=== PATIENT | female | born 1960 | race Hispanic/Latino ===

== ENCOUNTER 2017-10-16 12:36 | Observation (INO) | payer OTHER, SELFPAY ==
[2017-10-16] MEDS ORDERED: ASPIRIN 81 MG CHEWABLE TABLET ONE (12:55)
[2017-10-16] MEDS ORDERED: NA CHLORIDE 0.9% 500 ML ONE (13:06)
[2017-10-16 13:09] LABS: Absolute Lymphocytes (CBC) 2.3 K/uL (0.7-4.9); Absolute Monocytes 0.8 K/uL (0.1-1.3); Absolute Neutrophil 7.4 K/uL (1.8-8.0); Basophils % 0.7 % (0-1.3); Eosinophils % 1.8 % (0-4.4); Hematocrit 44.7 % (36.0-45.0); Lymphocytes % 21.3 % (15.3-44.8); MCH 30.7 pg (27.0-35.0); MCV 91.6 fL (80-100); MPV 8.8 fL (7.6-11.3); RBC Red Blood Cell Count 4.88 M/uL (3.86-4.86)
[2017-10-16 13:16] LABS: Protime INR 0.88
[2017-10-16 13:22] LABS: Albumin 3.8 g/dL (3.4-5.0); Bilirubin Direct 0.2 mg/dL (0-0.2); Bilirubin Total 0.8 mg/dL (0.2-1.0); CKMB Creatine Kinase MB 1.2 ng/mL (0.3-3.6); Potassium 4.1 mmol/L (3.5-5.1); Protein, Total 7.3 g/dL (6.4-8.2)
--- NOTE | 2017-10-16 13:26 | ER ---
Nurse's Notes [facility] Name: Evon Cain Age: 57 yrs Sex: Female : 1960 Arrival Date: 10/16/2017 Time: 12:[address] Private MD: Diagnosis: Other chest pain Presentation: 10/16 12:35 Presenting complaint: EMS states: pt c/o getting SOB when she starts with this rapid, tw2 deep belching, vs stable, normal EKG, has Trigeminal neuralgia, hx of anxiety and hyperlipidemia, only takes medications for cholesterol, Atorvastatin, has rx for Ribaxin PRN. Transition of care: patient was not received from another setting of care. Onset of symptoms was October 16, 2017. Risk Assessment: Do you want to hurt yourself or someone else? Patient reports no desire to harm self or others. Initial Sepsis Screen: Does the patient meet any 2 criteria? No. Patient's initial sepsis screen is negative. Does the patient have a suspected source of infection? No. Patient's initial sepsis screen is negative. Care prior to arrival: None. 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 tw2 Historical: - Allergies: 16:34 No Known Allergies; tw2 - Home Meds: 16:34 atorvastatin 40 mg oral tab 1 tab once daily [Active]; tw2 - PMHx: 16:34 Hyperlipidemia; Anxiety; tw2 17:00 Trigiminal neuralgia; tw2 - PSHx: 16:34 None; tw2 - Immunization history:: Adult Immunizations up to date. - Social history:: Smoking status: Patient uses tobacco products, smokes one-half pack cigarettes per day. - Family history:: not pertinent. - Ebola Screening: : Patient denies travel to an Ebola-affected area in the 21 days before illness onset. Screenin:56 Abuse screen: Denies threats or abuse. Nutritional screening: No deficits noted. tw2 Tuberculosis screening: No symptoms or risk factors identified. Fall Risk None identified. Assessment: 12:45 General: Appears in no apparent distress. obese, well groomed, Behavior is cooperative, tw2 appropriate for age. Pain: Complains of pain in epigastric area Also complains of pt will have spells of deep belching and experience SOB with this episodes. Neuro: Level of Consciousness is awake, alert, obeys commands, Oriented to person, place, time, situation. Cardiovascular: Denies chest pain, shortness of breath, Heart tones S1 S2 Patient's skin is warm and dry. Respiratory: Airway is patent Respiratory effort is even, unlabored, Respiratory pattern is regular, symmetrical, Breath sounds are clear bilaterally. GI: Patient currently denies epigastric pain, periods of deep belching with episodes of SOB when they happen. : No signs and/or symptoms were reported regarding the genitourinary system. EENT: No signs and/or symptoms were reported regarding the EENT system. Derm: No signs and/or symptoms reported regarding the dermatologic system. Skin is intact, is healthy with good turgor, Skin temperature is warm. Musculoskeletal: Range of motion: intact in all extremities. 14:00 Reassessment: Patient appears in no apparent distress at this time. Patient and/or tw2 family updated on plan of care and expected duration. Pain level reassessed. Patient is alert, oriented x 3, equal unlabored respirations, skin warm/dry/pink. 15:00 Reassessment: Patient appears in no apparent distress at this time. Patient and/or tw2 family updated on plan of care and expected duration. Pain level reassessed. Patient is alert, oriented x 3, equal unlabored respirations, skin warm/dry/pink. 16:30 Reassessment: Patient appears in no apparent distress at this time. No changes from tw2 previously documented assessment. Patient and/or family updated on plan of care and expected duration. Pain level reassessed. Patient is alert, oriented x 3, equal unlabored respirations, skin warm/dry/pink. 17:02 Reassessment: Patient appears in no apparent distress at this time. No changes from tw2 previously documented assessment. Patient and/or family updated on plan of care and expected duration. Pain level reassessed. Patient is alert, oriented x 3, equal unlabored respirations, skin warm/dry/pink. Vital Signs: 12:48 BP 142 / 94; Pulse 82; Resp 18; Temp 98.7(O); Pulse Ox 99% on R/A; Pain 0/10; tw2 13:23 BP 152 / 68; Pulse 76; Resp 20; Pulse Ox 100% on R/A; tw2 13:36 Weight 90.72 kg (R); tw2 15:00 BP 127 / 95; Pulse 57; Resp 17; Pulse Ox 100% on 2 lpm NC; tw2 16:28 BP 122 / 79; Pulse 58; Resp 18; Pulse Ox 100% on 2 lpm NC; tw2 16:55 BP 127 / 81; Pulse 61; Resp 20; Pulse Ox 100% on 2 lpm NC; tw2 ED Course: 12:35 Arm band placed on. tw2 12:35 Placed in gown. Bed in low position. Side rails up X2. cardiac monitor technician on. Pulse ox on. tw2 NIBP on. 12:40 Patient arrived in ED. la1 12:41 Frida Robison RN is Primary Nurse. tw2 12:43 Herbie Ospina MD is Attending Physician. odalis 12:48 Triage completed. tw2 13:25 Jackson Walsh DO is Hospitalizing Provider. odalis 13:47 X-ray completed. Portable x-ray completed in exam room. Patient tolerated procedure la2 well. 14:41 CT completed. Patient tolerated procedure well. Patient moved back from CT. kw1 16:29 Awaiting: attempted to call report per JAIR Jensen only 1 nurse is getting all ER new pts tw2 and needs a few minutes before she can take report. 17:02 No provider procedures requiring assistance completed. Maintain EMS IV. Dressing tw2 intact. Good blood return noted. Site clean \T\ dry. Gauge \T\ site: 20 g LEFT AC. Patient admitted, IV remains in place. Administered Medications: 13:11 Drug: NS 0.9% 1000 ml Route: IV; Rate: 125 ml/hr; Site: left antecubital; tw2 17:07 Follow up: Response: No adverse reaction; IV Status: Infusion continued upon admission tw2 13:11 Drug: Aspirin Chewable Tablet 162 mg Route: PO; tw2 17:01 Follow up: Response: No adverse reaction tw2 13:30 Drug: Lopressor (metoprolol TARTRATE) 50 mg Route: PO; tw2 16:29 Follow up: Response: No adverse reaction; Blood pressure is lowered tw2 16:03 Drug: Lovenox 1 mg/kg Route: Sub-Q; Site: right lower abdomen; la1 16:28 Follow up: Response: No adverse reaction tw2 Outcome: 13:26 Decision to Hospitalize by Provider. odalis 17:02 Admitted to Med/surg accompanied by tech, via wheelchair, room 409, with chart, Report tw2 called to JAIR Hurt 17:02 Condition: stable 17:02 Instructed on the need for admit. 17:07 Patient left the ED. tw2 Signatures: Herbie Ospina MD MD cha Attema, Lee, RN RN la1 Frida Robison RN RN tw2 Kat Maharaj la2 Roxi Benson 1 Corrections: (The following items were deleted from the chart) 16:28 16:07 BP 127 / 95; Pulse 57bpm; Resp 17bpm; Pulse Ox 100% 2 lpm Nasal Cannula; tw2 tw2 16:28 15:00 BP 122 / 79; Pulse 58bpm; Resp 18bpm; Pulse Ox 100% 2 lpm Nasal Cannula; tw2 tw2
--- NOTE | 2017-10-16 13:26 | EDPHYS ---
Physician Documentation [facility] Name: Evon Cain Age: 57 yrs Sex: Female : 1960 Arrival Date: 10/16/2017 Time: 12:[address] Private MD: ED Physician Herbie Ospina HPI: 10/16 13:21 This 57 yrs old Female presents to ER via EMS with complaints of chest pain odalis and sob. 13:21 The patient has shortness of breath at rest, with light activity. Onset: The odalis symptoms/episode began/occurred 2 day(s) ago. Duration: The symptoms are intermittent, with no pattern. The patient's shortness of breath has no apparent modifying factors. The patient or guardian reports chest pain that is located primarily in the anterior chest wall. Onset: just prior to arrival. The pain does not radiate. Associated signs and symptoms: Pertinent positives: chest pain. Severity of symptoms: At their worst the symptoms were mild in the emergency department the symptoms have improved moderately. Associated signs and symptoms: The patient has no apparent associated signs or symptoms. 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 tw2 Historical: - Allergies: 16:34 No Known Allergies; tw2 - Home Meds: 16:34 atorvastatin 40 mg oral tab 1 tab once daily [Active]; tw2 - PMHx: 16:34 Hyperlipidemia; Anxiety; tw2 17:00 Trigiminal neuralgia; tw2 - PSHx: 16:34 None; tw2 - Immunization history:: Adult Immunizations up to date. - Social history:: Smoking status: Patient uses tobacco products, smokes one-half pack cigarettes per day. - Family history:: not pertinent. - Ebola Screening: : Patient denies travel to an Ebola-affected area in the 21 days before illness onset. ROS: 13:21 Constitutional: Negative for fever, chills, and weight loss, Eyes: Negative for injury, odalis pain, redness, and discharge, ENT: Negative for injury, pain, and discharge, Neck: Negative for injury, pain, and swelling, Cardiovascular: Negative for chest pain, palpitations, and edema, Respiratory: Negative for shortness of breath, cough, wheezing, and pleuritic chest pain, Abdomen/GI: Negative for abdominal pain, nausea, vomiting, diarrhea, and constipation, Back: Negative for injury and pain, : Negative for injury, bleeding, discharge, and swelling, MS/Extremity: Negative for injury and deformity, Skin: Negative for injury, rash, and discoloration, Neuro: Negative for headache, weakness, numbness, tingling, and seizure, Psych: Negative for depression, anxiety, suicide ideation, homicidal ideation, and hallucinations, Allergy/Immunology: Negative for hives, rash, and allergies, Endocrine: Negative for neck swelling, polydipsia, polyuria, polyphagia, and marked weight changes, Hematologic/Lymphatic: Negative for swollen nodes, abnormal bleeding, and unusual bruising. Exam: 13:21 Constitutional: This is a well developed, well nourished patient who is awake, alert, odalis and in no acute distress. Head/Face: Normocephalic, atraumatic. Eyes: Pupils equal round and reactive to light, extra-ocular motions intact. Lids and lashes normal. Conjunctiva and sclera are non-icteric and not injected. Cornea within normal limits. Periorbital areas with no swelling, redness, or edema. ENT: Nares patent. No nasal discharge, no septal abnormalities noted. Tympanic membranes are normal and external auditory canals are clear. Oropharynx with no redness, swelling, or masses, exudates, or evidence of obstruction, uvula midline. Mucous membranes moist. Neck: Trachea midline, no thyromegaly or masses palpated, and no cervical lymphadenopathy. Supple, full range of motion without nuchal rigidity, or vertebral point tenderness. No Meningismus. Chest/axilla: Normal chest wall appearance and motion. Nontender with no deformity. No lesions are appreciated. Cardiovascular: Regular rate and rhythm with a normal S1 and S2. No gallops, murmurs, or rubs. Normal PMI, no JVD. No pulse deficits. Respiratory: Lungs have equal breath sounds bilaterally, clear to auscultation and percussion. No rales, rhonchi or wheezes noted. No increased work of breathing, no retractions or nasal flaring. Abdomen/GI: Soft, non-tender, with normal bowel sounds. No distension or tympany. No guarding or rebound. No evidence of tenderness throughout. Back: No spinal tenderness. No costovertebral tenderness. Full range of motion. Skin: Warm, dry with normal turgor. Normal color with no rashes, no lesions, and no evidence of cellulitis. MS/ Extremity: Pulses equal, no cyanosis. Neurovascular intact. Full, normal range of motion. Neuro: Awake and alert, GCS 15, oriented to person, place, time, and situation. Cranial nerves II-XII grossly intact. Motor strength 5/5 in all extremities. Sensory grossly intact. Cerebellar exam normal. Normal gait. Psych: Awake, alert, with orientation to person, place and time. Behavior, mood, and affect are within normal limits. 13:21 Musculoskeletal/extremity: DVT Exam: No signs of deep vein thrombosis. no pain, no swelling, no tenderness, negative Homans' sign noted on exam, no appreciated bluish discoloration, no erythema, no increased warmth. Vital Signs: 12:48 BP 142 / 94; Pulse 82; Resp 18; Temp 98.7(O); Pulse Ox 99% on R/A; Pain 0/10; tw2 13:23 BP 152 / 68; Pulse 76; Resp 20; Pulse Ox 100% on R/A; tw2 13:36 Weight 90.72 kg (R); tw2 15:00 BP 127 / 95; Pulse 57; Resp 17; Pulse Ox 100% on 2 lpm NC; tw2 16:28 BP 122 / 79; Pulse 58; Resp 18; Pulse Ox 100% on 2 lpm NC; tw2 16:55 BP 127 / 81; Pulse 61; Resp 20; Pulse Ox 100% on 2 lpm NC; tw2 MDM: 13:04 Patient medically screened. [facility] 13:21 Data reviewed: vital signs, nurses notes, lab test result(s), EKG, radiologic studies, odalis plain films. 10/16 12:44 Order name: Basic Metabolic Panel; Complete Time: 13:24 [facility] 10/16 12:44 Order name: CBC with Diff; Complete Time: 13:20 [facility] 10/16 12:44 Order name: Ckmb; Complete Time: 13:24 [facility] 10/16 12:44 Order name: CPK; Complete Time: 13:24 [facility] 10/16 12:44 Order name: LFT's; Complete Time: 13:24 [facility] 10/16 12:44 Order name: Magnesium; Complete Time: 13:24 [facility] 10/16 12:44 Order name: NT PRO-BNP; Complete Time: 13:24 [facility] 10/16 12:44 Order name: PT-INR; Complete Time: 13:20 [facility] 10/16 12:44 Order name: Ptt, Activated; Complete Time: 13:20 [facility] 10/16 12:44 Order name: Troponin (emerg Dept Use Only); Complete Time: 13:24 [facility] 10/16 12:44 Order name: XRAY Chest (1 view) [facility] 10/16 12:44 Order name: Lipase; Complete Time: 13:24 [facility] 10/16 13:21 Order name: D-Dimer; Complete Time: 15:14 [facility] 10/16 16:33 Order name: Urine Dipstick--Ancillary (enter results) 10/16 12:44 Order name: EKG; Complete Time: 12:45 [facility] 10/16 12:44 Order name: Cardiac monitoring; Complete Time: 13:11 [facility] 10/16 12:44 Order name: EKG - Nurse/Tech; Complete Time: 13:11 [facility] 10/16 13:20 Order name: CT Head Brain wo Cont [facility] 10/16 13:29 Order name: CONS Physician Consult [facility] 10/16 13:29 Order name: Echo with Doppler [facility] 10/16 13:50 Order name: CT; Complete Time: 15:14 [facility] 10/16 13:53 Order name: US Extremity Venous W Compression Chan [facility] 10/16 13:53 Order name: CT Chest For PE Angio [facility] 10/16 14:01 Order name: RAD; Complete Time: 15:14 [facility] 10/16 14:47 Order name: CT; Complete Time: 15:14 [facility] 10/16 15:45 Order name: US; Complete Time: 15:55 [facility] 10/16 12:44 Order name: IV Saline Lock; Complete Time: 13:11 [facility] 10/16 12:44 Order name: Labs collected and sent; Complete Time: 13:11 [facility] 10/16 12:44 Order name: O2 Per Protocol; Complete Time: 13:11 [facility] 10/16 12:44 Order name: O2 Sat Monitoring; Complete Time: 13:11 [facility] 10/16 12:44 Order name: Urine Dipstick-Ancillary (obtain specimen); Complete Time: 16:52 [facility] Administered Medications: 13:11 Drug: NS 0.9% 1000 ml Route: IV; Rate: 125 ml/hr; Site: left antecubital; tw2 17:07 Follow up: Response: No adverse reaction; IV Status: Infusion continued upon admission tw2 13:11 Drug: Aspirin Chewable Tablet 162 mg Route: PO; tw2 17:01 Follow up: Response: No adverse reaction tw2 13:30 Drug: Lopressor (metoprolol TARTRATE) 50 mg Route: PO; tw2 16:29 Follow up: Response: No adverse reaction; Blood pressure is lowered tw2 16:03 Drug: Lovenox 1 mg/kg Route: Sub-Q; Site: right lower abdomen; la1 16:28 Follow up: Response: No adverse reaction tw2 Disposition: 10/16/17 13:26 Hospitalization ordered by Jackson Walsh for Observation. Preliminary diagnosis is Other chest pain. - Bed requested for Telemetry/MedSurg (observation). - Status is Observation. tw2 - Condition is Stable. - Problem is new. - Symptoms have improved. UTI on Admission? No Signatures: Dispatcher [employer] EDMS Mylene Phelps Corey, MD MD cha Attema, Lee RN RN la1 Frida Robison RN RN tw2 Corrections: (The following items were deleted from the chart) 15:34 13:26 Hospitalization Ordered by Jackson Walsh DO for Observation. Preliminary bd diagnosis is Other chest pain. Bed requested for Telemetry/MedSurg (observation). Status is Observation. Condition is Stable. Problem is new. Symptoms have improved. UTI on Admission? No. odalis 17:07 15:34 10/16/2017 13:26 Hospitalization Ordered by Jackson Walsh DO for Observation. tw2 Preliminary diagnosis is Other chest pain. Bed requested for Telemetry/MedSurg (observation). Status is Observation. Condition is Stable. Problem is new. Symptoms have improved. UTI on Admission? No. bd
[2017-10-16] MEDS ORDERED: METOPROLOL TAR 50 MG TAB ONE (13:30)
[2017-10-16] MEDS ORDERED: ACETAMINOPHEN 500 MG TAB PO PRN (13:42)
[2017-10-16] MEDS ORDERED: ONDANSETRON 4 MG/2 ML VIAL IV PRN (13:42)
--- NOTE | 2017-10-16 13:50 | RAD REPORT ---
EXAM DESCRIPTION: CT - Head Brain Wo Cont - 10/16/2017 1:44 pm CLINICAL HISTORY: NUMBNESS TIA/CVA COMPARISON: No comparisons TECHNIQUE: All CT scans are performed using dose optimization technique as appropriate and may inclu de automated exposure control or mA/KV adjustment according to patient size. FINDINGS: No intracranial hemorrhage, hydrocephalus or extra-axial fluid collection.No areas of brai n edema or evidence of midline shift. The paranasal sinuses and mastoids are clear. The calvarium is intact. IMPRESSION: No acute intracranial abnormality.
--- NOTE | 2017-10-16 13:51 | P.HP ---
Certification for Inpatient Patient admitted to: Observation With expected LOS: <2 Midnights Patient will require the following post-hospital care: None Practitioner: I am a practitioner with admitting privileges, knowledge of patient current condition, hospital course, and medical plan of care. Services: Services provided to patient in accordance with Admission requirements found in Title 42 Section 412.3 of the Code of Federal Regulations Patient History Date of Service: 10/16/17 Primary Care Provider: Dr. Mclaughlin([place]) Reason for admission: Chest pain, shortness of breath History of Present Illness: 57-year-old female present emergency room with chest pain and shortness of breath. Patient reports chest pain and shortness of breath since yesterday. Chest pain mainly to the left side under the breast. She rates it as a sharp pain. It does not radiate. Associated with some palpitations and shortness of breath. She felt it with is a anxiety related issue. It did not stop. Patient has a history of hyperlipidemia, trigeminal neuralgia, and anxiety. She is a former tobacco user. The patient came to the ER for further evaluation. In the ER patient was evaluated. Initial cardiac enzymes unremarkable. CBC and BMP also unremarkable. CT of the head negative. Chest x-ray unremarkable. D-dimer was elevated. No significant EKG changes noted. Blood pressures were elevated. Patient admitted for further evaluation. When I saw the patient the ER, she appeared comfortable. No chest pain or SOB noted. Patient reports that her trigeminal neuralgia has been causing some nerve pain to the face and numbness. She is taking a muscle relaxer from time to time. She has not formally seen a neurologist. Patient drinks socially. She also is a former smoker. Allergies No Known Allergies Allergy (Unverified 01/03/12 09:34) Home medications list reviewed: Yes - Past Medical/Surgical History Diabetic: No -: Hyperlipidemia -: Anxiety -: Trigeminal neuralgia -: Former tobacco use -: Appendectomy -: Nasal polyps removed -: Breast nodule removed -: Tubal ligation Psychosocial/ Personal History: Patient is single. She has 3 children. 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 - Family History Father -: Cancer (Lung cancer) - Social History Smoking Status: Former smoker Alcohol use: Yes CD- Drugs: No Caffeine use: Yes Place of Residence: Home Review of Systems General: As per HPI Eyes: Unremarkable ENT: Unremarkable Respiratory: Shortness of Breath, As per HPI Cardiovascular: Chest Pain, Palpitations, As per HPI Gastrointestinal: Unremarkable Genitourinary: Unremarkable Musculoskeletal: Unremarkable Integumentary: Unremarkable Neurological: Numbness, As per HPI Lymphatics: Unremarkable Physical Examination - Physical Exam General: Alert, In no apparent distress, Oriented x3, Cooperative HEENT: Atraumatic, Normocephalic, PERRLA, Mucous membr. moist/pink Neck: Supple, No Thyromegaly Respiratory: Clear to auscultation bilaterally, Normal air movement Cardiovascular: Normal pulses, Regular rate/rhythm Gastrointestinal: Normal bowel sounds, Soft and benign, Non-distended, No ascites, No tenderness, No masses, No rebound, No guarding Musculoskeletal: No erythema, No tenderness, No warmth Integumentary: No tenderness/swelling, No erythema, No warmth, No cyanosis Neurological: Normal speech, Normal strength at 5/5 x4 extr, Normal tone, Normal affect Lymphatics: No axilla or inguinal lymphadenopathy - Studies Laboratory Data (last 24 hrs) 10/16/17 12:55: PT 10.4, INR 0.88, APTT 26.9 10/16/17 12:55: WBC 10.8, Hgb 15.0, Hct 44.7, Plt Count 314 10/16/17 12:55: Sodium 141, Potassium 4.1, BUN 15, Creatinine 0.90, Glucose 94, Magnesium 2.0, Total Bilirubin 0.8, AST 20, ALT 30, Alkaline Phosphatase 71, Lipase 378 Assessment and Plan - Problems (Diagnosis) (1) Chest pain Current Visit: Yes Status: Acute Plan: Chest pain with shortness of breath noted. Chest pain atypical. D-dimer elevated. Will check CT chest angiogram to rule out PE. Will monitor cardiac enzymes. Will obtain ECHO. Cardiology consulted to further address. Will keep NPO after midnight in the event she needs a cardiac evaluation. Blood pressure slightly elevated. Will start medication. Qualifiers: Chest pain type: unspecified Qualified Code(s): R07.9 - Chest pain, unspecified (2) Shortness of breath Current Visit: Yes Status: Acute Plan: Shortness of breath noted. D-dimer elevated. Will check CT angiogram. (3) Hyperlipidemia Current Visit: Yes Status: Chronic Plan: Will start Lipitor. Will check lipids. Qualifiers: Hyperlipidemia type: unspecified Qualified Code(s): E78.5 - Hyperlipidemia , unspecified (4) HTN (hypertension) Current Visit: Yes Status: Suspected Plan: Blood pressure elevated upon arrival. Will start low-dose metoprolol. Qualifiers: Hypertension type: essential hypertension Qualified Code(s): I10 - Essential (primary) hypertension (5) Anxiety Current Visit: Yes Status: Chronic Plan: Will provide medication prn (6) Trigeminal neuralgia Current Visit: Yes Status: Chronic Plan: Will start Neurontin. Patient may see Neurology as an outpatient. CT head unremarkable. (7) Palpitations Current Visit: Yes Status: Acute Plan: Will monitor telemetry. Cardiology consulted. Will check tsh. Will check urine drug screen. (8) Elevated d-dimer Current Visit: Yes Status: Acute Plan: D dimer elevated. Will check CT angiogram to rule out pulmonary embolism. Discharge Plan: Home Plan to discharge in: 24 Hours - Advance Directives Does patient have a Living Will: No Does patient have a Durable POA for Healthcare: No - Code Status/Comfort Care Code Status Assessed: Yes Time Spent Managing Pts Care (In Minutes): 55
[2017-10-16] MEDS ORDERED: NITROGLYCERIN 0.4 MG/TAB SL PRN (13:57)
[2017-10-16] MEDS: ENOXAPARIN 40 MG/0.4 ML SQ SCH (14:00)
--- NOTE | 2017-10-16 14:01 | RAD REPORT ---
EXAM DESCRIPTION: RAD - Chest Single View - 10/16/2017 1:48 pm CLINICAL HISTORY: CHEST PAIN Chest pain. COMPARISON: CHEST PA AND LAT 2 VIEW dated 07/19/2007 FINDINGS: Portable technique limits examination quality. The lungs are grossly clear. The heart is normal in size. No displaced fractures. IMPRESSION: No acute intrathoracic process suspected.
--- NOTE | 2017-10-16 14:47 | RAD REPORT ---
EXAM DESCRIPTION: CT - Chest For Pe Angio - 10/16/2017 2:40 pm CLINICAL HISTORY: Chest pain. Chest pain;Dyspnea COMPARISON: Chest Single View dated 10/16/2017; CHEST PA AND LAT 2 VIEW dated 07/19/2007 TECHNIQUE: CT angiogram of the pulmonary arteries was performed with MIP. All CT scans are performed using dose optimization technique as appropriate and may include automated exposure control or mA/KV adjustment according to patient size. FINDINGS: No evidence of pulmonary thromboembolism. No acute aortic finding demonstrated. The lungs are clear. No significant pericardial or pleural fluid. No concerning bony finding. IMPRESSION: No evidence of pulmonary thromboembolism. No acute lung findings.
--- NOTE | 2017-10-16 15:44 | RAD REPORT ---
EXAM DESCRIPTION: US - EXTREM VENOUS W COMPRESS CARLOS - 10/16/2017 3:38 pm CLINICAL HISTORY: PAIN Bilateral leg edema and swelling. COMPARISON: No comparisons TECHNIQUE: Real-time sonographic interrogation of the left and right lower extremity deep venous sys tems was performed. FINDINGS: Normal compressibility, flow augmentation, phasic flow and spontaneous flow is identified in both the left and right lower extremity deep venous systems. IMPRESSION: No sonographic evidence of left or right lower extremity deep venous thrombosis.
[2017-10-16] MEDS ORDERED: ENOXAPARIN 100 MG/ML SYR SQ ONE (16:03)
[2017-10-16] MEDS ORDERED: GABAPENTIN 100 MG CAP PO PRN (17:14)
[2017-10-16] MEDS: PANTOPRAZOLE 40MG TABLET PO SCH (18:06)
[2017-10-16] MEDS: NA CHLORIDE 0.9% 1,000 ML IV SCH (18:06)
[2017-10-16] MEDS: METOPROLOL TAR 25 MG TAB PO SCH (18:08)
[2017-10-16 18:24] VITALS: BMI 33.6
[2017-10-16 18:51] LABS: Urine Appearance CLEAR; Urine Bilirubin NEGATIVE (NEG); Urine Blood NEGATIVE (NEG); Urine Color YELLOW; Urine Glucose NEGATIVE (NEG); Urine Protein NEGATIVE (NEG); Urine Specific Gravity >=1.030 (1.005-1.030); Urine pH 6.5 (5.0-7.0)
[2017-10-16 19:00] LABS: Urine Microscopic Reflex NO UMIC
[2017-10-16 19:16] LABS: Barbiturates NEGATIVE (NEGATIVE); Benzodiazepines NEGATIVE (NEGATIVE); Cocaine NEGATIVE (NEGATIVE); METHAMPHETAM NEGATIVE (NEGATIVE); Methadone NEGATIVE (NEGATIVE); Opiates NEGATIVE (NEGATIVE); Phencyclidine NEGATIVE (NEGATIVE); THC Cannibis POSITIVE (NEGATIVE)
[2017-10-16] MEDS: LORazepam 2 MG/ML VIAL IV PRN (20:37)
[2017-10-16] MEDS ORDERED: ATORVASTATIN 40 MG TAB PO SCH (21:00)
[2017-10-16 21:02] LABS: CKMB Creatine Kinase MB < 1.0 ng/mL (0.3-3.6); Creatine Phosphokinase 97 U/L (26-192)
[2017-10-17] MEDS: NA CHLORIDE 0.9% 1,000 ML IV SCH ×2 (03:53→16:40)
[2017-10-17 04:20] LABS: Absolute Lymphocytes (CBC) 2.5 K/uL (0.7-4.9); Absolute Monocytes 0.7 K/uL (0.1-1.3); Basophils % 0.7 % (0-1.3); Hematocrit 41.3 % (36.0-45.0); Lymphocytes % 33.7 % (15.3-44.8); MCV 92.8 fL (80-100); MPV 8.9 fL (7.6-11.3); Monocytes % 9.7 % (3.3-12.3); RBC Red Blood Cell Count 4.45 M/uL (3.86-4.86)
[2017-10-17 04:48] LABS: BUN Blood Urea Nitrogen 11 mg/dL (7-18); Bicarbonate 29 mmol/L (21-32); CKMB Creatine Kinase MB < 1.0 ng/mL (0.3-3.6); Creatine Phosphokinase 76 U/L (26-192); Glucose Level 93 mg/dL (74-106); HDL Cholesterol 57 mg/dL (40-60); LDL Cholesterol, Calculated 94 (<130); Magnesium 2.2 mg/dL (1.8-2.4); Potassium 4.4 mmol/L (3.5-5.1); Sodium Level 142 mmol/L (136-145)
[2017-10-17] MEDS: METOPROLOL TAR 25 MG TAB PO SCH (05:55)
[2017-10-17] MEDS: TRAMADOL HCL 50 MG TAB PO PRN ×2 (06:20→12:47)
[2017-10-17] MEDS ORDERED: FENTANYL CITR 100 MCG/2 ML IV ONE (07:56)
[2017-10-17] MEDS: LORazepam 2 MG/ML VIAL IV PRN (08:23)
[2017-10-17] MEDS: ENOXAPARIN 40 MG/0.4 ML SQ SCH (08:23)
[2017-10-17] MEDS: PANTOPRAZOLE 40MG TABLET PO SCH (08:24)
[2017-10-17] MEDS ORDERED: ASPIRIN EC 81 MG TAB PO SCH (09:00)
--- NOTE | 2017-10-17 09:46 | EKG ---
Test Date: 2017-10-16 Test Time: 13:06:53 Fiscal Agent: DINAH MEASUREMENT RESULTS: Intervals: Rate: 65 AK: 144 QRSD: 88 QT: 378 QTc: 393 [place]: P: 48 AK: 144 QRS: 25 T: 40 INTERPRETIVE STATEMENTS: Normal sinus rhythm with sinus arrhythmia Normal ECG Compared to ECG 07/19/2007 11:39:31 No significant changes Electronically Signed On 10-17-17 09:45:26 CDT by Yan Ross
[2017-10-17 10:30] VITALS: O2SAT 99
[2017-10-17 10:40] VITALS: BP 142/92; TEMP 97.6
--- NOTE | 2017-10-17 11:29 | ECHO ---
HEIGHT: 5 ft 5 in WEIGHT: 202 lb 0 oz DATE OF STUDY: 10/17/[address]: Herbie Ospina MD 2-DIMENSIONAL: YES M.MODE: YES DOPPLER: YES COLOR FLOW: YES TDS: NO PORTABLE: NO DEFINITY: NO BUBBLE STUDY: NO DIAGNOSIS: CHEST PAIN CARDIAC HISTORY: CATHERIZATION: NO SURGERY: NO PROSTHETIC VALVE: NO PACEMAKER: NO MEASUREMENTS (cm) DIASTOLIC (NORMALS) SYSTOLIC (NORMALS) IVSd 1.0 (0.6-1.2) LA Diam 2.6 (1.9-4.0) LVEF 68% LVIDd 4.5 (3.5-5.7) LVIDs 2.6 (2.0-3.5) %FS 42% LVPWd 1.1 (0.6-1.2) Ao Diam 2.4 (2.0-3.7) 2 DIMENSIONAL ASSESSMENT: RIGHT ATRIUM: NORMAL LEFT ATRIUM: NORMAL RIGHT VENTRICLE: NORMAL LEFT VENTRICLE: NORMAL TRICUSPID VALVE: NORMAL MITRAL VALVE: NORMAL PULMONIC VALVE: NORMAL AORTIC VALVE: NORMAL PERICARDIAL EFFUSION: NONE AORTIC ROOT: NORMAL LEFT VENTRICULAR WALL MOTION: NORMAL. DOPPLER/COLOR FLOW: NORMAL. COMMENTS: NORMAL 2D ECHO WITH DOPPLER. TECHNOLOGIST: NICHOLAS SOTO
[2017-10-17] MEDS ORDERED: REGADENOSON 0.4 MG/5 ML SYR IV ONE (11:47)
--- NOTE | 2017-10-17 13:03 | RAD REPORT ---
EXAM DESCRIPTION: NM - Rest Stress Cardiac Imaging - 10/17/2017 12:47 pm CLINICAL HISTORY: Chest pain COMPARISON: None. TECHNIQUE: The patient was administered 10.5 mCi of Tc 99m Sestamibi prior to resting SPECT imaging of the heart. The patient was then administered 31.9 mCi of Tc 99m Sestamibi following exercise or ph armacologic stress. Multiplanar SPECT images were reviewed. FINDINGS: The end diastolic volume is 84 ml, the end systolic volume is 37 ml, and the ejection frac tion is 56 %. Physiologic distribution of the radiopharmaceutical through the myocardium is noted. No stress induce d ischemic defect is seen to suggest stress induced ischemia. No fixed defect is seen to suggest hibe rnating myocardium or scarred myocardium. IMPRESSION: No stress-induced ischemia and no scarring confirmed. Ventricular volumes and ejection fraction are normal range.
--- NOTE | 2017-10-17 13:21 | TREADPHA ---
DX: CHEST PAIN Date of Study: 10/17/17 Ht: 5 5 Wt: 202 lb 0 oz Consulting Physician: CHPAITO MEDICATIONS: TYLENOL, ASPIRIN, LIPITOR, LOVENOX, NEURONTIN, ATIVAN, LOPRESSOR, NITROSTAT, PROTONIX, ULTRAM HISTORY: 57 YEAR OLD FEMALE HERE FOR CHEST PAIN. HISTORY OF HYPERLIPIDEMIA, ANXIETY. PHYSICIAL EXAMINATION: RESTING B.P.: 124/80 RESTING H.R.: 56 RESTING EKG: SINUS BRADYCARDIA OTHERWISE NORMAL. PROTOCOL: LEXISCAN EXERCISE TIME: 3:30 B.P. AT PEAK STRESS: 131/82 IMPRESSION: LEXISCAN STRESS TEST PERFORMED. CARDIOLITE INJECTED PER PROTOCOL. PREMATURE ATRIAL COMPLEXES NOTED DURING TEST. DENIES ANY CHEST PAIN DURING TEST PT BECAME ANXIOUS/ SHORT OF BREATH POST TEST WHILE DRINKING COFFEE AND STARTED EXTREME BELCHING. SEE NUCLEAR MEDICINE REPORT. NON DIAGNOSTIC EKG WITH LEXISCAN STRESS.
--- NOTE | 2017-10-17 14:08 | CON ---
Chief Complaint: Chest pain manifested as inability to stop belching, dyspnea. She thought she was having a heart attack, came to the hospital. EKGs and enzymes are normal. Sever al years ago a nuclear stress test was normal. The patient does not have dyslipidemia, hypertension, diabetes, and does not use tobacco. There is no history of vascular disease. She has trigeminal ne uralgia, migraine headaches and is suffering a lot from that presently. The interview was difficult because of photophobia. Her outpatient medications have been Lipitor 10 mg, alprazolam. Physical Examination: Vital Signs: She is 5 feet 5 inches, 202 pounds. HEENT: Normal. Lungs: Clear. Neck: Carotids no bruit. Heart: Normal. Abdomen: Soft. Extremities: Normal. No cyanosis, clubbing, edema. Distal pulses normal. Impression: This is a noncardiac issue. There is a concern amongst the physicians to admit her that this is an acute coronary syndrome, unusual manifestation. I think it is unlikely at this point michelle t we will need to do pharmacologic nuclear stress test. I think the patient needs better treatment f or her trigeminal neuralgia and migraines than she did get as an outpatient. Hopefully that will prevent this, but I think this was basically an anxiety spell. ARIANE/JULIO Voice ID: [id number] Report ID: [id number]
--- NOTE | 2017-10-17 16:42 | P.DS ---
Admission Date: 10/16/17 Discharge Date: 10/17/17 Primary Care Provider: Dr. Mclaughlin([place]) Disposition: ROUTINE DISCHARGE Discharge Condition: GOOD Reason for Admission: Chest pain, shortness of breath Consultations: Cardiology: Dr. Ross Procedures: Echocardiogram: Ejection fraction unremarkable. Within normal range. CT chest angiogram: Unremarkable. No acute PE. Venous Doppler lower extremity bilateral: No acute DVT. Cardiac stress test: No stress-induced ischemia noted. - Problems (1) Chest pain Onset Date: 10/17/17 Current Visit: Yes Status: Acute Qualifiers: Chest pain type: unspecified Qualified Code(s): R07.9 - Chest pain, unspecified (2) Shortness of breath Onset Date: 10/17/17 Current Visit: Yes Status: Acute (3) Hyperlipidemia Onset Date: 10/17/17 Current Visit: Yes Status: Chronic Qualifiers: Hyperlipidemia type: unspecified Qualified Code(s): E78.5 - Hyperlipidemia , unspecified (4) HTN (hypertension) Onset Date: 10/17/17 Current Visit: Yes Status: Suspected Qualifiers: Hypertension type: essential hypertension Qualified Code(s): I10 - Essential (primary) hypertension (5) Anxiety Onset Date: 10/17/17 Current Visit: Yes Status: Chronic (6) Trigeminal neuralgia Onset Date: 10/17/17 Current Visit: Yes Status: Chronic (7) Palpitations Onset Date: 10/17/17 Current Visit: Yes Status: Acute (8) Elevated d-dimer Onset Date: 10/17/17 Current Visit: Yes Status: Acute (9) GERD (gastroesophageal reflux disease) Current Visit: Yes Status: Suspected Qualifiers: Esophagitis presence: esophagitis presence not specified Qualified Code(s) : K21.9 - Gastro-esophageal reflux disease without esophagitis Brief History of Present Illness: 57-year-old female present emergency room with chest pain and shortness of breath. Patient reports chest pain and shortness of breath since yesterday. Chest pain mainly to the left side under the breast. She rates it as a sharp pain. It does not radiate. Associated with some palpitations and shortness of breath. She felt it with is a anxiety related issue. It did not stop. Patient has a history of hyperlipidemia, trigeminal neuralgia, and anxiety. She is a former tobacco user. The patient came to the ER for further evaluation. In the ER patient was evaluated. Initial cardiac enzymes unremarkable. CBC and BMP also unremarkable. CT of the head negative. Chest x-ray unremarkable. D-dimer was elevated. No significant EKG changes noted. Blood pressures were elevated. Patient admitted for further evaluation. When I saw the patient the ER, she appeared comfortable. No chest pain or SOB noted. Patient reports that her trigeminal neuralgia has been causing some nerve pain to the face and numbness. She is taking a muscle relaxer from time to time. She has not formally seen a neurologist. Patient drinks socially. She also is a former smoker. Hospital Course: Patient presented with chest pain. Patient seen and evaluated by Cardiology. Echocardiogram and cardiac stress test unremarkable and showing no stress- induced ischemia. CT chest and venous Doppler of the lower extremity also unremarkable. No further intervention required. At discharge she will continue with aspirin 81 mg daily. Patient may have underlying GERD. At discharge patient will continue with Protonix 40 mg 1 pill once daily. Recommendations for the patient to follow up with GI as an outpatient consider EGD evaluation. Patient has anxiety. Patient will continue with her medication-alprazolam 0.5 mg 1 pill twice daily as needed. Further adjustment can be done by her PCP. Patient has history of trigeminal neuralgia. At discharge patient will continue with Neurontin 100 mg 1 pill twice daily as needed for pain. Recommendation for the patient follow up with neurology as an outpatient to establish care and further address. Patient has hyperlipidemia. Patient will continue with Lipitor 10 mg 1 pill once daily. Patient had mild elevation in her blood pressures. No medications required at discharge. Recommendation is to maintain blood pressures less 150/80. If her blood pressures remain above 140/90 consistently she is to contact her PCP to consider medication. Vital Signs/Physical Exam: Temp Pulse Resp BP Pulse Ox 97.6 F 60 24 H 142/92 H 100 10/17/17 08:00 10/17/17 08:00 10/17/17 08:00 10/17/17 08:10/17/17 08:00 General: Alert, In no apparent distress, Oriented x3, Cooperative HEENT: Atraumatic Neck: Supple Respiratory: Clear to auscultation bilaterally, Normal air movement Cardiovascular: Normal pulses, Regular rate/rhythm Gastrointestinal: Normal bowel sounds, Soft and benign, Non-distended, No tenderness, No masses, No rebound, No guarding Musculoskeletal: No erythema, No tenderness, No warmth Integumentary: No tenderness/swelling, No erythema, No warmth, No cyanosis Neurological: Normal speech, Normal strength at 5/5 x4 extr, Normal tone, Normal affect Lymphatics: No axilla or inguinal lymphadenopathy Laboratory Data at Discharge: WBC 7.6 K/uL (4.3-10.9) D 10/17/17 03:40 Hgb 14.2 g/dL (12.0-15.0) 10/17/17 03:40 Hct 41.3 % (36.0-45.0) 10/17/17 03:40 Plt Count 262 K/uL (152-406) 10/17/17 03:40 PT 10.4 SECONDS (9.5-12.5) 10/16/17 12:55 INR 0.88 10/16/17 12:55 APTT 26.9 SECONDS (24.3-36.9) 10/16/17 12:55 Sodium 142 mmol/L (136-145) 10/17/17 03:40 Potassium 4.4 mmol/L (3.5-5.1) 10/17/17 03:40 BUN 11 mg/dL (7-18) 10/17/17 03:40 Creatinine 0.80 mg/dL (0.55-1.3) 10/17/17 03:40 Glucose 93 mg/dL (74-106) 10/17/17 03:40 Magnesium 2.2 mg/dL (1.8-2.4) 10/17/17 03:40 Total Bilirubin 0.8 mg/dL (0.2-1.0) 10/16/17 12:55 AST 20 U/L (15-37) 10/16/17 12:55 ALT 30 U/L (12-78) 10/16/17 12:55 Alkaline Phosphatase 71 U/L (45-117) 10/16/17 12:55 Troponin I < 0.02 ng/mL (0.0-0.045) 10/17/17 03:40 Triglycerides Cancelled 10/17/17 05:00 Cholesterol Cancelled 10/17/17 05:00 HDL Cholesterol Cancelled 10/17/17 05:00 Cholesterol/HDL Ratio Cancelled 10/17/17 05:00 Lipase 378 U/L (73-393) 10/16/17 12:55 Home Medications: ALPRAZolam [Xanax*] 0.5 mg PO BIDP PRN 10/16/17 Atorvastatin Calcium [Lipitor*] 10 mg PO BEDTIME 10/16/17 Aspirin [Aspirin EC 81 MG] 81 mg PO DAILY #30 tablet. 10/17/17 Gabapentin [Neurontin*] 100 mg PO BID PRN #30 cap 10/17/17 Pantoprazole [Protonix Tab*] 40 mg PO ACB #30 tab 10/17/17 New Medications: Aspirin [Aspirin EC 81 MG] 81 mg PO DAILY #30 tablet. Gabapentin [Neurontin*] 100 mg PO BID PRN #30 cap PRN Reason: Pain Pantoprazole [Protonix Tab*] 40 mg PO ACB #30 tab Patient Discharge Instructions: 1. Patient will need to follow up with a PCP to establish care and follow up this hospitalization. 2. Patient presented with chest pain. Patient seen and evaluated by Cardiology. Echocardiogram and cardiac stress test unremarkable and showing no stress-induced ischemia. CT chest and venous Doppler of the lower extremity unremarkable. At discharge she will continue with aspirin 81 mg daily. Patient will also start Protonix 40 mg 1 pill once daily. Patient may have underlying GERD. Recommendations for the patient to follow up with GI as an outpatient consider EGD evaluation. 3. Patient has anxiety. Patient will continue with her medication-alprazolam 0.5 mg 1 pill twice daily as needed. Further adjustment can be done by her PCP. 4. Patient has history of trigeminal neuralgia. At discharge patient will continue with Neurontin 100 mg 1 pill twice daily as needed for pain. Recommendation for the patient follow up with neurology as an outpatient to establish care and further address. 5. Patient has hyperlipidemia. Patient will continue with Lipitor 10 mg 1 pill once daily. 6. Patient had mild elevation in her blood pressures. No medications required at discharge. Recommendation is to maintain blood pressures less 150/80. If her blood pressures remain above 140/90 consistently she is to contact her PCP to consider medication. Diet: AHA Activity: Ad donta Followup: Yan Ross MD [ACTIVE - CAN ADMIT] - Time spent managing pt's care (in minutes): 55
== END 2017-10-17 18:10 | disposition home or self-care (01) ==
LOC: ER 12:36 → ERHOLD 13:26 → 4TH 17:03
PROVIDERS: ADMIT Family Medicine; ATTEND Family Medicine
DX: R07.9 Chest pain, unspecified (principal); R00.2 Palpitations; R06.02 Shortness of breath; G50.0 Trigeminal neuralgia; F41.9 Anxiety disorder, unspecified; E78.5 Hyperlipidemia, unspecified; Z87.891 Personal history of nicotine dependence; R79.1 Abnormal coagulation profile
CPT/HCPCS: 36415; 70450; 71045; 71275; 78452; 80048; 80061; 80076; 80307; 81003; 82550; 82553; 83690; 83735; 83880; 84439; 84443; 84484; 85025; 85379; 85610; 85730; 93005; 93017; 93306; 93970; 96360; 96361; 96372; 99285; A9500; G0378; J1650; J2405; J2785; J3010; J7030; Q9967

== ENCOUNTER 2017-11-05 13:12 | Emergency (ER) | payer SELFPAY ==
--- NOTE | 2017-11-05 15:02 | RAD REPORT ---
EXAM DESCRIPTION: USExtremvamshi Venous Uni Ltd11/05/2017 2:56 pm CLINICAL HISTORY: left leg pain . COMPARISON: None. FINDINGS: Left common femoral, superficial femoral, popliteal and posterior tibial veins are compre ssible and demonstrate augmentation. Doppler demonstrates good flow. IMPRESSION: No evidence of deep venous thrombosis involving the left lower extremity.
--- NOTE | 2017-11-05 15:21 | EDPHYS ---
Physician Documentation [facility] Name: Evon Cain Age: 57 yrs Sex: Female : 1960 Arrival Date: 11/05/2017 Time: 13:14 Bed 8 Private MD: ED Physician Dieter Carpenter HPI: 11/05 15:10 This 57 yrs old Female presents to ER via Ambulatory with complaints of Leg wa Pain. 15:10 The patient presents with pain, that is acute, c/o pain in back of L knee. The wa complaints affect the posterior aspect of left knee. Context: The problem was sustained at an unknown site, resulted from denies injury, the patient can fully bear weight, the patient is able to ambulate, without difficulty, Problem is a result from a previous injury: No. Onset: The symptoms/episode began/occurred 2 day(s) ago. Modifying factors: The symptoms are alleviated by nothing. the symptoms are aggravated by nothing. Associated signs and symptoms: Pertinent positives: swelling, of the posterior aspect of left knee, Pertinent negatives calf tenderness, fever, numbness, weakness. Treatment prior to arrival includes: no previous treatment. Severity of symptoms: At their worst the symptoms were moderate, in the emergency department the symptoms are unchanged. The patient has not experienced similar symptoms in the past. The patient has been recently seen by a physician: here. had a full work up with chest CT. no PE. HOSPICE NURSE: 13:26 LMP 10/05/2017 aj Historical: - Allergies: 13:26 No Known Allergies; aj - Home Meds: 13:26 atorvastatin 10 mg oral tab [Active]; pantoprazole 40 mg oral TbEC 1 tab once daily aj [Active]; gabapentin 100 mg oral cap 3 caps twice a day [Active]; aspirin 81 mg Oral TbEC 1 tab once daily [Active]; alprazolam 0.5 mg Oral tab as needed [Active]; - PMHx: 13:26 Anxiety; Hyperlipidemia; trigiminal neuralgia; aj - PSHx: 13:26 None; aj - Immunization history:: Adult Immunizations up to date. - Social history:: Smoking status: Patient/guardian denies using tobacco. - Ebola Screening: : Patient negative for fever greater than or equal to 101.5 degrees Fahrenheit, and additional compatible Ebola Virus Disease symptoms Patient denies exposure to infectious person Patient denies travel to an Ebola-affected area in the 21 days before illness onset No symptoms or risks identified at this time. - Family history:: not pertinent. - Hospitalizations: : No recent hospitalization is reported. ROS: 15:13 Constitutional: Negative for fever, chills, and weight loss, Eyes: Negative for injury, wa pain, redness, and discharge, ENT: Negative for injury, pain, and discharge, Neck: Negative for injury, pain, and swelling, Cardiovascular: Negative for chest pain, palpitations, and edema, Respiratory: Negative for shortness of breath, cough, wheezing, and pleuritic chest pain, Abdomen/GI: Negative for abdominal pain, nausea, vomiting, diarrhea, and constipation, Back: Negative for injury and pain, : Negative for injury, bleeding, discharge, and swelling, Skin: Negative for injury, rash, and discoloration, Neuro: Negative for headache, weakness, numbness, tingling, and seizure, Psych: Negative for depression, anxiety, suicide ideation, homicidal ideation, and hallucinations. 15:13 MS/extremity: Positive for swelling, tenderness, of the posterior aspect of left knee. 15:13 All other systems are negative. Exam: 15:14 Constitutional: This is a well developed, well nourished patient who is awake, alert, wa and in no acute distress. Head/Face: Normocephalic, atraumatic. Eyes: Pupils equal round and reactive to light, extra-ocular motions intact. Lids and lashes normal. Conjunctiva and sclera are non-icteric and not injected. Cornea within normal limits. Periorbital areas with no swelling, redness, or edema. ENT: Nares patent. No nasal discharge, no septal abnormalities noted. Tympanic membranes are normal and external auditory canals are clear. Oropharynx with no redness, swelling, or masses, exudates, or evidence of obstruction, uvula midline. Mucous membranes moist. Neck: Trachea midline, no thyromegaly or masses palpated, and no cervical lymphadenopathy. Supple, full range of motion without nuchal rigidity, or vertebral point tenderness. No Meningismus. Chest/axilla: Normal chest wall appearance and motion. Nontender with no deformity. No lesions are appreciated. Cardiovascular: Regular rate and rhythm with a normal S1 and S2. No gallops, murmurs, or rubs. Normal PMI, no JVD. No pulse deficits. Respiratory: Lungs have equal breath sounds bilaterally, clear to auscultation and percussion. No rales, rhonchi or wheezes noted. No increased work of breathing, no retractions or nasal flaring. Abdomen/GI: Soft, non-tender, with normal bowel sounds. No distension or tympany. No guarding or rebound. No evidence of tenderness throughout. Back: No spinal tenderness. No costovertebral tenderness. Full range of motion. Skin: Warm, dry with normal turgor. Normal color with no rashes, no lesions, and no evidence of cellulitis. Neuro: Awake and alert, GCS 15, oriented to person, place, time, and situation. Cranial nerves II-XII grossly intact. Motor strength 5/5 in all extremities. Sensory grossly intact. Cerebellar exam normal. Normal gait. Psych: Awake, alert, with orientation to person, place and time. Behavior, mood, and affect are within normal limits. 15:14 Musculoskeletal/extremity: Extremities: grossly normal except: noted mild soft tissue swelling. no erythema. mild tender. symmetrical exam compared to the Right. . Vital Signs: 13:26 BP 127 / 82; Pulse 99; Resp 20; Temp 97.8; Pulse Ox 99% on R/A; Weight 92.99 kg; Height aj 5 ft. 5 in. (165.10 cm); 13:58 BP 118 / 73; Pulse 84; Resp 16; Temp 98.5; Pulse Ox 99% on R/A; Pain 6/10; ch 15:27 BP 116 / 72; Pulse 74; Resp 16; Pulse Ox 100% on R/A; la1 13:26 Body Mass Index 34.11 (92.99 kg, 165.10 cm) MDM: 13:36 Patient medically screened. wa 15:17 Differential diagnosis: r/o DVT, although unlikely per exam. if negative, will d/c and wa advise pain meds. Data reviewed: vital signs, nurses notes. 11/05 13:46 Order name: Extremity Venous Unilateral Ltd; Complete Time: 15:08 wa Administered Medications: No medications were administered Disposition: 11/05/17 15:20 Discharged to Home. Impression: Left Leg Pain. - Condition is Stable. - Medication Reconciliation Form, Thank You Letter, Antibiotic Education, Prescription Opioid Use form. - Follow up: Private Physician; When: 1 - 2 days; Reason: Re-evaluation by your physician. - Problem is new. - Symptoms are unchanged. - Notes: take tylenol of motrin for pain as needed. you do not have a blood clot Signatures: Dispatcher [employer] EDMS Pilar Jean RN RN aj Daniele Lorenz RN RN la1 Dieter Carpenter MD MD wa Corrections: (The following items were deleted from the chart) 15:28 15:20 11/05/2017 15:20 Discharged to Home. Impression: Left Leg Pain. Condition is la1 Stable. Forms are Medication Reconciliation Form, Thank You Letter, Antibiotic Education, Prescription Opioid Use. Follow up: Private Physician; When: 1 - 2 days; Reason: Re-evaluation by your physician. Problem is new. Symptoms are unchanged. wa
--- NOTE | 2017-11-05 15:21 | ER ---
Nurse's Notes [facility] Name: Evon Cain Age: 57 yrs Sex: Female : 1960 Arrival Date: 11/05/2017 Time: 13:14 Bed 8 Private MD: Diagnosis: Left Leg Pain Presentation: 11/05 13:24 Presenting complaint: Patient states: Pain and swelling behind left knee for 2 days. aj Transition of care: patient was not received from another setting of care. Onset of symptoms was November 03, 2017. Risk Assessment: Do you want to hurt yourself or someone else? Patient reports no desire to harm self or others. Initial Sepsis Screen: Does the patient meet any 2 criteria? No. Patient's initial sepsis screen is negative. Does the patient have a suspected source of infection? No. Patient's initial sepsis screen is negative. Care prior to arrival: None. 13:24 Method Of Arrival: Ambulatory aj 13:24 Acuity: ANA 3 aj Triage Assessment: 13:26 General: Appears in no apparent distress. comfortable, Behavior is calm, cooperative, aj appropriate for age. Pain: Complains of pain in posterior aspect of left knee. Neuro: Level of Consciousness is awake, alert, obeys commands, Oriented to person, place, time, situation, Appropriate for age. Respiratory: Airway is patent Trachea midline Respiratory effort is even, unlabored, Respiratory pattern is regular, symmetrical. Derm: Skin is intact, is healthy with good turgor, Skin is pink, warm \T\ dry. normal. Musculoskeletal: Reports pain in posterior aspect of left knee and left calf. OPTIONS TRADER: 13:26 LMP 10/05/2017 aj Historical: - Allergies: 13:26 No Known Allergies; aj - Home Meds: 13:26 atorvastatin 10 mg oral tab [Active]; pantoprazole 40 mg oral TbEC 1 tab once daily aj [Active]; gabapentin 100 mg oral cap 3 caps twice a day [Active]; aspirin 81 mg Oral TbEC 1 tab once daily [Active]; alprazolam 0.5 mg Oral tab as needed [Active]; - PMHx: 13:26 Anxiety; Hyperlipidemia; trigiminal neuralgia; aj - PSHx: 13:26 None; aj - Immunization history:: Adult Immunizations up to date. - Social history:: Smoking status: Patient/guardian denies using tobacco. - Ebola Screening: : Patient negative for fever greater than or equal to 101.5 degrees Fahrenheit, and additional compatible Ebola Virus Disease symptoms Patient denies exposure to infectious person Patient denies travel to an Ebola-affected area in the 21 days before illness onset No symptoms or risks identified at this time. - Family history:: not pertinent. - Hospitalizations: : No recent hospitalization is reported. Screenin:58 Abuse screen: Denies threats or abuse. Denies injuries from another. Nutritional ch screening: No deficits noted. Tuberculosis screening: No symptoms or risk factors identified. Fall Risk None identified. Assessment: 13:58 General: Appears in no apparent distress. comfortable, Behavior is calm, cooperative, ch appropriate for age. Pain: Complains of pain in left calf and left leg and posterior aspect of left knee Pain currently is 6 out of 10 on a pain scale. Neuro: No deficits noted. Cardiovascular: Heart tones S1 S2 present Capillary refill < 3 seconds in bilateral fingers toes Clubbing of nail beds is absent Pulses are all present. Edema is absent. Respiratory: Airway is patent Respiratory effort is even, unlabored, Breath sounds are clear bilaterally. GI: No signs and/or symptoms were reported involving the gastrointestinal system. Abdomen is flat, non-distended, Bowel sounds present X 4 quads. Derm: Skin is pink, warm \T\ dry. Musculoskeletal: Reports pain in left calf and left leg and posterior aspect of left knee pt has slight swellig and lumps, c/o pain and numbness/tinging to L leg. 14:43 Reassessment: Patient appears in no apparent distress at this time. No changes from previously documented assessment. Patient and/or family updated on plan of care and expected duration. Pain level reassessed. Patient is alert, oriented x 3, equal unlabored respirations, skin warm/dry/pink. Vital Signs: 13:26 BP 127 / 82; Pulse 99; Resp 20; Temp 97.8; Pulse Ox 99% on R/A; Weight 92.99 kg; Height aj 5 ft. 5 in. (165.10 cm); 13:58 BP 118 / 73; Pulse 84; Resp 16; Temp 98.5; Pulse Ox 99% on R/A; Pain 6/10; ch 15:27 BP 116 / 72; Pulse 74; Resp 16; Pulse Ox 100% on R/A; la1 13:26 Body Mass Index 34.11 (92.99 kg, 165.10 cm) ED Course: 13:14 Patient arrived in ED. mr 13:25 Triage completed. aj 13:26 Arm band placed on left wrist. Patient placed in an exam room. 13:36 Dieter Carpenter MD is Attending Physician. dc 13:57 Barbie Hong, RN is Primary Nurse. 13:58 No apparent distress. Resting quietly. ch 13:58 Patient has correct armband on for positive identification. Placed in gown. Bed in low ch position. Call light in reach. Side rails up X 1. school lunch monitor on. Pulse ox on. NIBP on. Warm blanket given. 13:58 No provider procedures requiring assistance completed. ch 14:53 Ultrasound completed. Patient tolerated well. sg3 14:57 Extremity Venous Unilateral Ltd In Process Unspecified. EDMS 15:27 Patient did not have IV access during this emergency room visit. la1 Administered Medications: No medications were administered Outcome: 15:20 Discharge ordered by . dc 15:28 Discharged to home ambulatory. la1 15:28 Condition: stable 15:28 Discharge instructions given to patient, Instructed on discharge instructions, follow up and referral plans. Demonstrated understanding of instructions, follow-up care. 15:28 Patient left the ED. la1 Signatures: Dispatcher [employer] EDMS Barbie Hong, RN Pilar Soto ch, RN RN aj Rivera, Maria mr Kelechi, Daniele RN RN la1 Dieter Carpenter MD MD wa Godinez, Sarah sg3
[2017-11-05 15:34] VITALS: TEMP 98.5
[2017-11-05 15:35] VITALS: BP 116/72; O2SAT 100
== END 2017-11-05 15:28 | disposition home or self-care (01) ==
LOC: ER 13:12
DX: M79.605 Pain in left leg (principal)
CPT/HCPCS: 93971; 99284

== ENCOUNTER 2018-04-21 09:39 | Emergency (ER) | payer SELFPAY ==
--- NOTE | 2018-04-21 10:19 | RAD REPORT ---
EXAM DESCRIPTION: CT - Stone Protocol - 04/21/2018 10:06 am CLINICAL HISTORY: Flank pain. FLANK PAIN COMPARISON: No comparisons TECHNIQUE: Axial images were obtained without oral or IV contrast. Lack of contrast limits solid org an and vascular assessment. The [id number] spans the entirety of the system partially obscuring uppermost abdomen and lung bases. Coronal reformatted images were obtained and reviewed. All CT scans are performed using dose optimization technique as appropriate and may include automated exposure control or mA/KV adjustment according to patient size. FINDINGS: The lower lung [place] are clear. Imaged portions of the liver and spleen show no suspicious findings on non-contrast imaging. The panc reas and adrenal glands are normal. No pathologic lymphadenopathy in the abdomen or pelvis. No urinary tract stones or obstructive uropathy. No bowel obstruction, free air, free fluid or abscess. Sigmoid diverticulosis is present without dive rticulitis. No significant bony abnormality. IMPRESSION: No urinary tract stones or obstructive uropathy.
[2018-04-21 10:25] LABS: Absolute Lymphocytes (CBC) 2.4 K/uL (0.7-4.9); Absolute Monocytes 0.8 K/uL (0.1-1.3); Absolute Neutrophil 4.2 K/uL (1.8-8.0); Basophils % 1.2 % (0-1.3); Eosinophils % 6.6 % (0-4.4); Hematocrit 44.8 % (36.0-45.0); Lymphocytes % 29.7 % (15.3-44.8); MPV 8.7 fL (7.6-11.3); Monocytes % 9.8 % (3.3-12.3); RBC Red Blood Cell Count 5.08 M/uL (3.86-4.86)
[2018-04-21] MEDS ORDERED: MORPHINE 4 MG/ML SYR ONE (10:30)
[2018-04-21] MEDS ORDERED: ONDANSETRON 4 MG/2 ML VIAL ONE (10:30)
[2018-04-21] MEDS ORDERED: NA CHLORIDE 0.9% 1,000 ML ONE (10:30)
[2018-04-21 10:44] LABS: Bilirubin Direct 0.2 mg/dL (0-0.2); Bilirubin Total 1.1 mg/dL (0.2-1.0); Potassium 4.2 mmol/L (3.5-5.1); Protein, Total 7.6 g/dL (6.4-8.2)
[2018-04-21 10:44] LABS: Urine Blood TRACE (NEG); Urine Glucose NEGATIVE (NEG); Urine Protein NEGATIVE (NEG); Urine Specific Gravity 1.015 (1.005-1.030)
[2018-04-21 10:55] LABS: Urine Bacteria 20-50 /HPF (<20); Urine Culture Reflex Order REFLEXED; Urine RBC <5 /HPF (NONE SEEN)
--- NOTE | 2018-04-21 11:31 | EDPHYS ---
Physician Documentation [facility] Name: Evon Cain Age: 58 yrs Sex: Female : 1960 Arrival Date: 04/21/2018 Time: 09:41 Bed 6 Private MD: ED Physician Nish Ward HPI: 04/21 10:30 This 58 yrs old Female presents to ER via Ambulatory with complaints of Back pm1 Pain, Nausea. 10:30 The patient presents with pain that is acute, with no known mechanism of injury. The pm1 symptoms are located in the left low back. Onset: The symptoms/episode began/occurred yesterday. The pain radiates to the left lower quadrant. Associated signs and symptoms: Pertinent positives: nausea, Pertinent negatives: chest pain, fever, headache, hematuria, numbness, tingling, vomiting. The problem was sustained from unknown cause. Modifying factors: The patient symptoms are alleviated by nothing, the patient symptoms are aggravated by movement. Severity of symptoms: in the emergency department the symptoms are actually worse. The patient has not experienced similar symptoms in the past. The patient has not recently seen a physician. Historical: - Allergies: 09:57 Latex, Natural Rubber; iw - PMHx: 09:57 Anxiety; Hyperlipidemia; trigeminal neuralgia; iw - PSHx: 09:57 Appendectomy; Tubal ligation; nasal; iw - Immunization history:: Adult Immunizations not up to date. - Social history:: Smoking status: Patient/guardian denies using tobacco. - Ebola Screening: : Patient negative for fever greater than or equal to 101.5 degrees Fahrenheit, and additional compatible Ebola Virus Disease symptoms Patient denies exposure to infectious person Patient denies travel to an Ebola-affected area in the 21 days before illness onset No symptoms or risks identified at this time. ROS: 10:30 Constitutional: Negative for fever, chills, and weight loss, Eyes: Negative for injury, pm1 pain, redness, and discharge, ENT: Negative for injury, pain, and discharge, Neck: Negative for injury, pain, and swelling, Cardiovascular: Negative for chest pain, palpitations, and edema, Respiratory: Negative for shortness of breath, cough, wheezing, and pleuritic chest pain. 10:30 : Negative for injury, bleeding, discharge, and swelling, MS/Extremity: Negative for injury and deformity, Skin: Negative for injury, rash, and discoloration, Neuro: Negative for headache, weakness, numbness, tingling, and seizure. 10:30 Abdomen/GI: Positive for abdominal pain, nausea, of the left lower quadrant, Negative for vomiting, diarrhea, constipation. 10:30 Back: Positive for flank pain, on the left. Exam: 10:30 Constitutional: This is a well developed, well nourished patient who is awake, alert, pm1 and in no acute distress. Head/Face: Normocephalic, atraumatic. Eyes: Pupils equal round and reactive to light, extra-ocular motions intact. Lids and lashes normal. Conjunctiva and sclera are non-icteric and not injected. Cornea within normal limits. Periorbital areas with no swelling, redness, or edema. ENT: Nares patent. No nasal discharge, no septal abnormalities noted. Tympanic membranes are normal and external auditory canals are clear. Oropharynx with no redness, swelling, or masses, exudates, or evidence of obstruction, uvula midline. Mucous membranes moist. Neck: Trachea midline, no thyromegaly or masses palpated, and no cervical lymphadenopathy. Supple, full range of motion without nuchal rigidity, or vertebral point tenderness. No Meningismus. Chest/axilla: Normal chest wall appearance and motion. Nontender with no deformity. No lesions are appreciated. Cardiovascular: Regular rate and rhythm with a normal S1 and S2. No gallops, murmurs, or rubs. Normal PMI, no JVD. No pulse deficits. Respiratory: Lungs have equal breath sounds bilaterally, clear to auscultation and percussion. No rales, rhonchi or wheezes noted. No increased work of breathing, no retractions or nasal flaring. 10:30 Skin: Warm, dry with normal turgor. Normal color with no rashes, no lesions, and no evidence of cellulitis. MS/ Extremity: Pulses equal, no cyanosis. Neurovascular intact. Full, normal range of motion. 10:30 Abdomen/GI: Inspection: abdomen appears normal, Bowel sounds: normal. 10:30 Back: pain, that is mild, of the left low back, vertebral tenderness, is not appreciated. 10:30 Neuro: Orientation: is normal, Motor: is normal, moves all fours, Sensation: is normal, no obvious gross deficits. Vital Signs: 09:58 BP 143 / 99; Pulse 93; Resp 16 S; Temp 97.8(O); Pulse Ox 98% on R/A; Weight 97.52 kg; iw Height 5 ft. 5 in. (165.10 cm); Pain 7/10; 10:58 BP 114 / 77; Pulse 61; Resp 16 S; Pulse Ox 99% on R/A; jl7 09:58 Body Mass Index 35.78 (97.52 kg, 165.10 cm) iw MDM: 09:51 Patient medically screened. pm1 11:29 Data reviewed: vital signs. Data interpreted: Pulse oximetry: on room air is 99 %. pm1 Interpretation: normal. Counseling: I had a detailed discussion with the patient and/or guardian regarding: the historical points, exam findings, and any diagnostic results supporting the discharge/admit diagnosis, lab results, radiology results, the need for outpatient follow up, to return to the emergency department if symptoms worsen or persist or if there are any questions or concerns that arise at home. 04/21 09:56 Order name: Basic Metabolic Panel; Complete Time: 10:48 pm04/21 09:56 Order name: CBC with Diff; Complete Time: 10:29 pm1 04/21 09:56 Order name: Creatinine for Radiology; Complete Time: 10:48 pm04/21 09:56 Order name: Hepatic Function; Complete Time: 10:48 pm04/21 09:56 Order name: Lipase; Complete Time: 10:48 pm04/21 09:56 Order name: Urine Microscopic Only; Complete Time: 11:01 pm04/21 09:56 Order name: CT Stone Protocol: Left flank pain; Complete Time: 10:23 pm04/21 10:25 Order name: Urine Dipstick--Ancillary (enter results); Complete Time: 10:48 eb 04/21 11:02 Order name: Urine Culture [facility] 04/21 09:56 Order name: IV Saline Lock; Complete Time: 10:20 pm04/21 09:56 Order name: Labs collected and sent; Complete Time: 10:20 pm1 04/21 09:56 Order name: Urine Dipstick-Ancillary (obtain specimen); Complete Time: 10:20 pm04/21 09:58 Order name: Urine Test (obtain specimen); Complete Time: 10:20 pm1 Administered Medications: 10:27 Drug: NS 0.9% 1000 ml Route: IV; Rate: 1 bolus; Site: right forearm; bp 12:04 Follow up: IV Status: Completed infusion; IV Intake: 1000ml bp 10:28 Drug: Zofran 4 mg Route: IVP; Site: right forearm; bp 11:13 Follow up: Response: Pain is decreased bp 11:15 Follow up: Response: Nausea is decreased bp 10:31 Drug: morphine 4 mg Route: IVP; Site: right forearm; jl7 11:13 Follow up: Response: No adverse reaction; Pain is decreased bp 11:39 Drug: TORadol 30 mg Route: IVP; Site: right forearm; bp 12:04 Follow up: Response: Pain is decreased bp 11:39 Drug: Rocephin 1 grams Route: IV; Rate: calculated rate; Site: right forearm; bp 12:03 Follow up: IV Status: Completed infusion; IV Intake: 100ml bp 11:40 Drug: Flexeril 10 mg Route: PO; bp 12:03 Follow up: Response: Pain is decreased bp Disposition: 04/21/18 11:30 Discharged to Home. Impression: Low back pain, Urinary tract infection, site not specified. - Condition is Stable. - Discharge Instructions: Back Pain, Adult, Urinary Tract Infection, Adult. - Prescriptions for Tylenol- Codeine #3 300-30 mg Oral Tablet - take 2 tablets by ORAL route every 6 hours As needed; 20 tablet. Bactrim DS 800- 160 mg Oral Tablet - take 1 tablet by ORAL route every 12 hours for 10 days; 20 tablet. - Medication Reconciliation Form, Thank You Letter, Antibiotic Education, Prescription Opioid Use form. - Follow up: Emergency Department; When: As needed; Reason: Worsening of condition. Follow up: Private Physician; When: 2 - 3 days; Reason: Recheck today's complaints, Continuance of care, Re-evaluation by your physician. - Problem is new. - Symptoms have improved. Signatures: Dispatcher [employer] EDGilda Blackburn RN RN iw Fede Plummer, LILIA TOOLS DEVELOPER pm1 Omar Negro RN RN jl7 Kt Cassidy RN RN bp Corrections: (The following items were deleted from the chart) 12:04 11:30 04/21/2018 11:30 Discharged to Home. Impression: Low back pain; Urinary tract bp infection, site not specified. Condition is Stable. Forms are Medication Reconciliation Form, Thank You Letter, Antibiotic Education, Prescription Opioid Use. Follow up: Emergency Department; When: As needed; Reason: Worsening of condition. Follow up: Private Physician; When: 2 - 3 days; Reason: Recheck today's complaints, Continuance of care, Re-evaluation by your physician. Problem is new. Symptoms have improved. pm1
--- NOTE | 2018-04-21 11:31 | ER ---
Nurse's Notes [facility] Name: Evon Cain Age: 58 yrs Sex: Female : 1960 Arrival Date: 04/21/2018 Time: 09:41 Bed 6 Private MD: Diagnosis: Low back pain;Urinary tract infection, site not specified Presentation: 04/21 09:55 Presenting complaint: Patient states: c/o left mid back pain radiating to LLQ since iw yesterday, denies hx of kidney stones, denies urinary symptoms, denies injury. Transition of care: patient was not received from another setting of care. Onset of symptoms was April 20, 2018. Risk Assessment: Do you want to hurt yourself or someone else? Patient reports no desire to harm self or others. Initial Sepsis Screen: Does the patient meet any 2 criteria? No. Patient's initial sepsis screen is negative. Does the patient have a suspected source of infection? No. Patient's initial sepsis screen is negative. Care prior to arrival: None. 09:55 Method Of Arrival: Ambulatory iw 09:55 Acuity: AAN 3 iw Historical: - Allergies: 09:57 Latex, Natural Rubber; iw - PMHx: 09:57 Anxiety; Hyperlipidemia; trigeminal neuralgia; iw - PSHx: 09:57 Appendectomy; Tubal ligation; nasal; iw - Immunization history:: Adult Immunizations not up to date. - Social history:: Smoking status: Patient/guardian denies using tobacco. - Ebola Screening: : Patient negative for fever greater than or equal to 101.5 degrees Fahrenheit, and additional compatible Ebola Virus Disease symptoms Patient denies exposure to infectious person Patient denies travel to an Ebola-affected area in the 21 days before illness onset No symptoms or risks identified at this time. Screenin:00 Abuse screen: Denies threats or abuse. Denies injuries from another. Nutritional bp screening: No deficits noted. Tuberculosis screening: No symptoms or risk factors identified. Fall Risk None identified. Assessment: 10:00 General: Appears in no apparent distress. uncomfortable, obese, Behavior is bp cooperative, appropriate for age, anxious. Pain: Complains of pain in low back area. Neuro: Level of Consciousness is awake, alert, obeys commands, Oriented to person, place, time, situation, Appropriate for age. Cardiovascular: No deficits noted. Respiratory: Airway is patent Respiratory effort is even, unlabored, Respiratory pattern is regular, symmetrical. GI: Reports nausea. : No signs and/or symptoms were reported regarding the genitourinary system. EENT: No deficits noted. Derm: No deficits noted. Musculoskeletal: Circulation, motion, and sensation intact. Range of motion: intact in all extremities. 11:59 Reassessment: PT D/C HOME AMBULATORY, DX WITH BACK PAIN AND UTI. bp Vital Signs: 09:58 BP 143 / 99; Pulse 93; Resp 16 S; Temp 97.8(O); Pulse Ox 98% on R/A; Weight 97.52 kg; iw Height 5 ft. 5 in. (165.10 cm); Pain 7/10; 10:58 BP 114 / 77; Pulse 61; Resp 16 S; Pulse Ox 99% on R/A; jl7 09:58 Body Mass Index 35.78 (97.52 kg, 165.10 cm) iw ED Course: 09:41 Patient arrived in ED. rg4 09:51 Nish Ward MD is Attending Physician. kdr 09:51 Fede Plummer NP is PHCP. pm1 09:56 Triage completed. iw 09:58 Kt Cassidy, JAIR is Primary Nurse. bp 09:58 Arm band placed on. iw 09:[address] via wheelchair. vm2 10:00 Patient has correct armband on for positive identification. Bed in low position. Call bp light in reach. Side rails up X2. 10:06 CT completed. Patient tolerated procedure well. Patient moved back from CT. vm2 10:07 CT Stone Protocol: Left flank pain In Process Unspecified. EDMS 10:19 Initial lab(s) drawn, by mt, sent to lab. Inserted saline lock: 22 gauge in right jl7 forearm, using aseptic technique. Blood collected. 10:24 Urine collected: clean catch specimen, cloudy, nj colored. jb1 12:02 No provider procedures requiring assistance completed. IV discontinued, intact, bp bleeding controlled, No redness/swelling at site. Pressure dressing applied. Administered Medications: 10:27 Drug: NS 0.9% 1000 ml Route: IV; Rate: 1 bolus; Site: right forearm; bp 12:04 Follow up: IV Status: Completed infusion; IV Intake: 1000ml bp 10:28 Drug: Zofran 4 mg Route: IVP; Site: right forearm; bp 11:13 Follow up: Response: Pain is decreased bp 11:15 Follow up: Response: Nausea is decreased bp 10:31 Drug: morphine 4 mg Route: IVP; Site: right forearm; jl7 11:13 Follow up: Response: No adverse reaction; Pain is decreased bp 11:39 Drug: TORadol 30 mg Route: IVP; Site: right forearm; bp 12:04 Follow up: Response: Pain is decreased bp 11:39 Drug: Rocephin 1 grams Route: IV; Rate: calculated rate; Site: right forearm; bp 12:03 Follow up: IV Status: Completed infusion; IV Intake: 100ml bp 11:40 Drug: Flexeril 10 mg Route: PO; bp 12:03 Follow up: Response: Pain is decreased bp Intake: 12:03 IV: 100ml; Total: 100ml. bp 12:04 IV: 1000ml; Total: 1100ml. bp Outcome: 11:30 Discharge ordered by . pm1 12:01 Discharged to home ambulatory, with friend. bp 12:01 Condition: stable 12:01 Discharge instructions given to patient, Instructed on discharge instructions, follow up and referral plans. medication usage, Demonstrated understanding of instructions, follow-up care, medications, Prescriptions given X 2. 12:04 Patient left the ED. bp Signatures: Dispatcher [employer] EDRaghu Arora jb1 Nish Ward MD MD kdr Williams, Irene RN RN iw Fede Plummer, LILIA SENIOR PATIENT ACCOUNT REPRESENTATIVE pm1 Selam العلي4 Omar Negro RN RN jl7 Katerina Chatman [facility] Kt Cassidy RN RN bp
[2018-04-21] MEDS ORDERED: KETOROLAC 30 MG/ML INJ ONE (11:39)
[2018-04-21] MEDS ORDERED: CYCLOBENZAPRINE 10 MG TAB ONE (11:39)
[2018-04-21] MEDS ORDERED: CEFTRIAXONE 1000 MG/VIAL ONE (11:42)
[2018-04-21] MEDS ORDERED: NA CHLORIDE 0.9% 100 ML IV ONE (11:42)
[2018-04-21 12:17] VITALS: TEMP 97.8
[2018-04-21 12:19] VITALS: BP 114/77; O2SAT 99
== END 2018-04-21 12:04 | disposition home or self-care (01) ==
LOC: ER 09:39
DX: N39.0 Urinary tract infection, site not specified (principal); F41.9 Anxiety disorder, unspecified; Z91.040 Latex allergy status; Z91.048 Other nonmedicinal substance allergy status
CPT/HCPCS: 36415; 74176; 76377; 80048; 80076; 81003; 81015; 83690; 85025; 87086; 87088; 96361; 96365; 96375; 99284; J2405; J7030

== ENCOUNTER 2018-04-25 13:02 | Emergency (ER) | payer SELFPAY ==
[2018-04-25] MEDS ORDERED: BISACODYL 10 MG RECTAL SUPP ONE (14:15)
--- NOTE | 2018-04-25 15:07 | EDPHYS ---
Physician Documentation [facility] Name: Evon Cain Age: 58 yrs Sex: Female : 1960 Arrival Date: 04/25/2018 Time: 13:05 Bed 16 Private MD: ED Physician Randolph Floyd HPI: 04/25 15:00 This 58 yrs old Female presents to ER via Ambulatory with complaints of Back gs Pain. 15:00 The symptoms are located in the left low back. Onset: The symptoms/episode gs began/occurred 1 week(s) ago. Associated signs and symptoms: Pertinent positives: constipation, Pertinent negatives: dysuria. Severity of symptoms: At their worst the symptoms were moderate, in the emergency department the symptoms are unchanged. The patient has not experienced similar symptoms in the past. The patient has been recently seen at the [facility] Emergency Department, this week, for similar complaints. Historical: - Allergies: 13:18 Latex, Natural Rubber; ch - Home Meds: 13:18 alprazolam 0.5 mg Oral tab as needed [Active]; aspirin 81 mg Oral TbEC 1 tab once daily [Active]; atorvastatin 10 mg Oral tab [Active]; gabapentin 100 mg Oral cap 3 caps twice a day [Active]; pantoprazole 40 mg Oral TbEC 1 tab once daily [Active]; - PMHx: 13:18 Anxiety; Hyperlipidemia; trigeminal neuralgia; kidney infection; ch - PSHx: 13:18 Appendectomy; Tubal ligation; nasal; lumpectomy breast; ch - Immunization history:: Adult Immunizations up to date. - Social history:: Smoking status: Patient uses tobacco products. - Ebola Screening: : Patient negative for fever greater than or equal to 101.5 degrees Fahrenheit, and additional compatible Ebola Virus Disease symptoms Patient denies exposure to infectious person Patient denies travel to an Ebola-affected area in the 21 days before illness onset No symptoms or risks identified at this time. ROS: 15:00 All other systems are negative. gs Exam: 15:00 Head/Face: Normocephalic, atraumatic. Eyes: Pupils equal round and reactive to light, gs extra-ocular motions intact. Lids and lashes normal. Conjunctiva and sclera are non-icteric and not injected. Cornea within normal limits. Periorbital areas with no swelling, redness, or edema. ENT: Nares patent. No nasal discharge, no septal abnormalities noted. Tympanic membranes are normal and external auditory canals are clear. Oropharynx with no redness, swelling, or masses, exudates, or evidence of obstruction, uvula midline. Mucous membranes moist. Neck: Trachea midline, no thyromegaly or masses palpated, and no cervical lymphadenopathy. Supple, full range of motion without nuchal rigidity, or vertebral point tenderness. No Meningismus. Chest/axilla: Normal chest wall appearance and motion. Nontender with no deformity. No lesions are appreciated. Cardiovascular: Regular rate and rhythm with a normal S1 and S2. No gallops, murmurs, or rubs. Normal PMI, no JVD. No pulse deficits. Respiratory: Lungs have equal breath sounds bilaterally, clear to auscultation and percussion. No rales, rhonchi or wheezes noted. No increased work of breathing, no retractions or nasal flaring. Abdomen/GI: Soft, non-tender, with normal bowel sounds. No distension or tympany. No guarding or rebound. No evidence of tenderness throughout. Back: No spinal tenderness. No costovertebral tenderness. Full range of motion. Skin: Warm, dry with normal turgor. Normal color with no rashes, no lesions, and no evidence of cellulitis. MS/ Extremity: Pulses equal, no cyanosis. Neurovascular intact. Full, normal range of motion. Neuro: Awake and alert, GCS 15, oriented to person, place, time, and situation. Cranial nerves II-XII grossly intact. Motor strength 5/5 in all extremities. Sensory grossly intact. Cerebellar exam normal. Normal gait. 15:00 Constitutional: The patient appears alert, awake. 15:00 Abdomen/GI: Rectal exam: the exam is chaperoned by the nurse, no impaction mass v stool at fingers edge. Vital Signs: 13:18 BP 138 / 78; Pulse 113; Resp 16; Temp 98.3; Pulse Ox 99% on R/A; Weight 97.52 kg; ch Height 5 ft. 5 in. (165.10 cm); Pain 8/10; 14:18 BP 159 / 93; Pulse 82; Resp 17; Pulse Ox 98% on R/A; Pain 7/10; rb1 15:13 BP 155 / 94; Pulse 87; Resp 18; Pulse Ox 98% on R/A; rb1 16:00 BP 155 / 91; Pulse 86; Resp 17; Pulse Ox 100% on R/A; Pain 6/10; rb1 13:18 Body Mass Index 35.78 (97.52 kg, 165.10 cm) ch MDM: 13:50 Patient medically screened. 15:00 Data reviewed: vital signs, nurses notes, old medical records. 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 Response to treatment: the patient's symptoms have mildly improved after treatment. Administered Medications: 14:10 Drug: Dulcolax Suppository 10 mg Route: IA; rb1 14:30 Follow up: Response: No adverse reaction rb1 Disposition: 04/25/18 15:06 Discharged to Home. Impression: Constipation, unspecified. - Condition is Stable. - Discharge Instructions: Constipation, Adult. - Prescriptions for Miralax 17 gram/dose Oral - take 1 packet by ORAL route once daily dilute powder in 8 ounces of water or juice; 1 bottle. Neurontin 300 mg Oral Capsule - take 1 capsule by ORAL route every 8 hours; 30 capsule. - Medication Reconciliation Form, Thank You Letter, Antibiotic Education, Prescription Opioid Use form. - Follow up: Dieter Ochoa MD; When: 2 - 3 days; Reason: Re-evaluation by your physician. Signatures: Barbie Hong RN RN Charla Batista RN RN [facility] Randolph Floyd MD MD Corrections: (The following items were deleted from the chart) 16:04 15:06 04/25/2018 15:06 Discharged to Home. Impression: Constipation, unspecified. rb1 Condition is Stable. Forms are Medication Reconciliation Form, Thank You Letter, Antibiotic Education, Prescription Opioid Use. Follow up: Dieter Ochoa; When: 2 - 3 days; Reason: Re-evaluation by your physician.
--- NOTE | 2018-04-25 15:07 | ER ---
Nurse's Notes [facility] Name: Evon Cain Age: 58 yrs Sex: Female : 1960 Arrival Date: 04/25/2018 Time: 13:05 Bed 16 Private MD: Diagnosis: Constipation, unspecified Presentation: 04/25 13:15 Presenting complaint: Patient states: I was seen here [facility], dx with diverticulitis, ch kidney infection, still having pain in my back L side, radiating into all of my stomach. I feel like I need to vomit, and I cannot poop, I feel like there is a stool in my rectum stuck. Transition of care: patient was not received from another setting of care. Onset of symptoms was April 21, 2018. Risk Assessment: Do you want to hurt yourself or someone else? Patient reports no desire to harm self or others. Initial Sepsis Screen: Does the patient meet any 2 criteria? No. Patient's initial sepsis screen is negative. Does the patient have a suspected source of infection? No. Patient's initial sepsis screen is negative. Care prior to arrival: None. 13:15 Method Of Arrival: Ambulatory 13:15 Acuity: ANA 3 Triage Assessment: 13:18 General: Appears in no apparent distress. uncomfortable, Behavior is agitated, anxious, ch restless. Pain: Complains of pain in left low back, left mid back and abdomen Pain currently is 8 out of 10 on a pain scale. Musculoskeletal: Capillary refill < 3 seconds. Historical: - Allergies: 13:18 Latex, Natural Rubber; - Home Meds: 13:18 alprazolam 0.5 mg Oral tab as needed [Active]; aspirin 81 mg Oral TbEC 1 tab once daily [Active]; atorvastatin 10 mg Oral tab [Active]; gabapentin 100 mg Oral cap 3 caps twice a day [Active]; pantoprazole 40 mg Oral TbEC 1 tab once daily [Active]; - PMHx: 13:18 Anxiety; Hyperlipidemia; trigeminal neuralgia; kidney infection; - PSHx: 13:18 Appendectomy; Tubal ligation; nasal; lumpectomy breast; - Immunization history:: Adult Immunizations up to date. - Social history:: Smoking status: Patient uses tobacco products. - Ebola Screening: : Patient negative for fever greater than or equal to 101.5 degrees Fahrenheit, and additional compatible Ebola Virus Disease symptoms Patient denies exposure to infectious person Patient denies travel to an Ebola-affected area in the 21 days before illness onset No symptoms or risks identified at this time. Screenin:30 Abuse screen: Denies threats or abuse. Nutritional screening: No deficits noted. rb1 Tuberculosis screening: No symptoms or risk factors identified. Fall Risk None identified. Assessment: 13:30 General: Appears in no apparent distress. comfortable, Behavior is calm, cooperative, rb1 Denies fever. Pain: Complains of pain in left low back Pain radiates to left lower quadrant Pain currently is 7 out of 10 on a pain scale. Pain began Tyron. Neuro: Level of Consciousness is awake, alert, obeys commands, Oriented to person, place, time, situation. Cardiovascular: Capillary refill < 3 seconds is brisk in bilateral fingers. Respiratory: Airway is patent Respiratory effort is even, unlabored, Respiratory pattern is regular, symmetrical. GI: Reports constipation. : No signs and/or symptoms were reported regarding the genitourinary system. Derm: Skin is pink, warm \T\ dry. Musculoskeletal: Range of motion: intact in all extremities. 14:30 Reassessment: Patient appears in no apparent distress at this time. No changes from rb1 previously documented assessment. 15:31 Reassessment: I went in to discharge the pt. but she is in the restroom. rb1 15:55 Reassessment: Discharge delayed to the pt. being in the restroom due to the suppository rb1 I administered. 16:00 Reassessment: Patient appears in no apparent distress at this time. Patient and/or rb1 family updated on plan of care and expected duration. Pain level reassessed. Patient is alert, oriented x 3, equal unlabored respirations, skin warm/dry/pink. Pt. reports that she had a bowel movement and got some relief. Vital Signs: 13:18 BP 138 / 78; Pulse 113; Resp 16; Temp 98.3; Pulse Ox 99% on R/A; Weight 97.52 kg; ch Height 5 ft. 5 in. (165.10 cm); Pain 8/10; 14:18 BP 159 / 93; Pulse 82; Resp 17; Pulse Ox 98% on R/A; Pain 7/10; rb1 15:13 BP 155 / 94; Pulse 87; Resp 18; Pulse Ox 98% on R/A; rb1 16:00 BP 155 / 91; Pulse 86; Resp 17; Pulse Ox 100% on R/A; Pain 6/10; rb1 13:18 Body Mass Index 35.78 (97.52 kg, 165.10 cm) ED Course: 13:05 Patient arrived in ED. as 13:17 Triage completed. 13:18 Arm band placed on left wrist. Patient placed in an exam room, on a stretcher. 13:22 Charla Batista, RN is Primary Nurse. rb1 13:30 Patient has correct armband on for positive identification. Bed in low position. Call [facility] light in reach. Side rails up X 1. Pulse ox on. NIBP on. 13:39 Randolph Floyd MD is Attending Physician. 15:06 Dieter Ochoa MD is Referral Physician. 16:02 No provider procedures requiring assistance completed. Patient did not have IV access rb1 during this emergency room visit. Administered Medications: 14:10 Drug: Dulcolax Suppository 10 mg Route: MO; [facility] 14:30 Follow up: Response: No adverse reaction rb1 Outcome: 15:06 Discharge ordered by . 16:02 Discharged to home ambulatory. rb1 16:02 Condition: stable 16:02 Discharge instructions given to patient, Instructed on discharge instructions, follow up and referral plans. medication usage, Demonstrated understanding of instructions, follow-up care, medications, Prescriptions given X 2. 16:04 Patient left the ED. [facility] Signatures: Barbie Hong, JAIR ADAM Christin Andres as Charla Batista, RN RN [facility] Randolph Floyd MD MD
[2018-04-25 16:31] VITALS: TEMP 98.3
[2018-04-25 16:32] VITALS: O2SAT 98
[2018-04-25 16:33] VITALS: BP 155/94
== END 2018-04-25 16:04 | disposition home or self-care (01) ==
LOC: ER 13:02
DX: K59.00 Constipation, unspecified (principal); F41.9 Anxiety disorder, unspecified; E78.5 Hyperlipidemia, unspecified; Z72.0 Tobacco use; Z79.82 Long term (current) use of aspirin; Z91.040 Latex allergy status; Z91.048 Other nonmedicinal substance allergy status
CPT/HCPCS: 99283

== ENCOUNTER 2021-07-19 09:23 | Emergency (ER) | payer OTHER ==
--- OUTSIDE RECORDS SUMMARY | 2021-07-19 09:28 | XMS REPORT | Continuity of Care Document ---
:1960 Author Organization [facility] t Address [address] [place] [address] Care Team Providers Name Role Phone Adria Primary Care Physician AMY Attending Clinician Unavailable Yusuf HOWARD Attending Clinician Unavailable TOMMY Attending Clinician Unavailable Ren CROWELL Attending Clinician Unavailable Mervat LINEN GRADER, G Attending Clinician Crescencio GOLDBERG Attending Clinician Janet GALLEGOS Attending Clinician Yohannes HARDEN Attending Clinician Unavailable AMY Attending Clinician Unavailable Delroy ADAM, M Attending Clinician Unavailable Michelle ZARATE, F Attending Clinician Reji PAC, S Attending Clinician WANDA Admitting Clinician Unavailable Payers Payer Name Policy Type Policy Number Effective Date Expiration Date S papa MEDICAID [facility] [id number] 2018 00:00:00 [facility] [id number] 2019 CHOICE MEDICAID 00:00:00 [facility] [facility] [id number] 2020 STAR 00:00:00 [facility] STAR [id number] 2020 00:00:00 Problems Condition Condition Condition Status Onset Resolution Last Treating Co mments Source Name Details Category Date Date Treatment Clinician Date Right foot Right foot Disease Active U T pain pain 2-10 Health 00:00: 00 Bursitis Bursitis Disease Active [facility] of left of left 7-14 Health shoulder shoulder 00:00: 00 Tendinitis Tendinitis Disease Active U T of left of left 7-14 Health rotator rotator 00:00: cuff cuff 00 Dailey Dailey Disease Active UT neuroma, neuroma, 6-08 Health right right 00:00: 00 Acute pain Acute pain Disease Active U T of left of left 6-08 Health shoulder shoulder 00:00: 00 Traumatic Traumatic Disease Active UT tear of tear of 6-08 Health left left 00:00: rotator rotator 00 cuff cuff Traumatic Traumatic Disease Active UT tear of tear of 6-08 Health left left 00:00: rotator rotator 00 cuff cuff Attention Attention Disease Active 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 1-11 Health hyperactiv hyperactiv 00:00: ity ity 00 disorder disorder (ADHD), (ADHD), 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 Depressive Depressive Disease Active 2018-02 U T disorder disorder 1-07 Health 00:00: 00 History of History of Problem Resolve [facility] Physici cholestero cholestero an s l l Achilles Achilles Problem Active UT tendinitis tendinitis Ph ysici of left of left ans lower lower extremity extremity Metatarsal Metatarsal Problem Active U T joey of joey of Physici right foot right foot an s Partial Partial Problem Active UT Achilles Achilles Physic i tendon tendon ans tear, tear, left, left, initial initial encounter encounter History of History of Problem Resolve UT blood blood d Physici clots clots ans Dailey Dailey Problem Active UT neuroma, neuroma, Physic i right right ans Left ankle Left ankle Problem Active U T pain pain Physici ans Right foot Right foot Problem Active U T pain pain Physici ans No known No known Disease Unive rs active active ity of problems problems [facility] Allergies, Adverse Reactions, Alerts Allergy Allergy Status Severity Reaction(s) Onset Inactive Treating Comm ents Source Name Type Date Date Clinician Latex Propensi Active Moderate UT ty to 6-08 Health adverse 00:00: reaction 00 s LATEX DRUG Active ITCHING Univers INGREDI 2-16 ity of 00:00: [place] [id number] Medical Branch Latex Propensi Active Itching Univers ty to 2-16 ity of adverse 00:00: [place] reaction 00 Medical s Branch Social History Social Habit Start Date Stop Date Quantity Comments Source Exposure to Not sure [facility] SARS-CoV-2 (event) Alcohol intake 2021-04-02 2021-04-02 Ex-drinker [facility] 00:00:00 00:00:00 (finding) Tobacco use and 2020-07-29 2020-07-29 Smokeless tobacco [facility] exposure 00:00:00 00:00:00 non-user Sex Assigned At [birth year] [facility] 00:00:00 00:00:00 Smoking Status Start Date Stop Date Source Ex-smoker 2020-07-29 00:00:00 2020-07-29 00:00:00 [place] [facility] Unknown if ever smoked [facility] Never smoker [facility] Medications Ordered Filled Start Stop Current Ordering Indication Dosage Frequency Signature Comments Components Source Medication Medication Date Date Medication? Clinician (SIG) Name Name NaCl 0.9% 2021- No [id number] 500mL at 999 Univers (NS) bolus 03-08 mL/hr, 500 it y of infusion 18:30: 18:03 mL, IV [place] 500 mL 00 :00 Infusion, Medical ONCE, 1 Branch dose, On 03/08/21 at 1230, CAROL butalbital- 2021- No [id number] 1{tbl} 1 tablet, Univers acetaminoph 03-08 Oral, ity of en-caff 18:30: 17:32 ONCE, 1 [place] (ESGIC) 00 :00 dose, On Medical 50-325-40 Sun Branch mg tablet 1 03/08/21 at tablet 1230, Routine diphenhydrA 2021- No [id number] 25mg 25 mg, Univers MINE 03-08 Slow IV ity of (BENADRYL) 18:30: 17:33 Push, [place] injection 00 :00 ONCE, 1 Medical 25 mg dose, On Branch 03/08/21 at 1230, STAT metoclopram 2021- No [id number] 10mg 10 mg, Univers joseph HCl 03-08 Slow IV ity of (REGLAN) 18:30: 17:34 Push, [place] injection 00 :00 ONCE, 1 Medical 10 mg dose, On Branch 03/08/21 at 1230, CAROL ketorolac 2021- No [id number] 30mg 30 mg, Univers (TORADOL) 03-08 Slow IV ity of injection 18:30: 17:33 Push, [place] 30 mg 00 :00 ONCE, 1 Medical dose, On Branch 03/08/21 at 1230, Routine
member of parliament approving Restricted medication : SEBASTIEN CROWELL gabapentin Yes 100mg Take 100 Un angy 100 mg 1-16 mg by ity of capsule 11:28: mouth 3 [place] 56 (three) Medical times Branch daily. pantoprazol Yes 40mg Take 40 mg Univers e 40 mg EC -16 by mouth ity o f tablet 11:28: daily. [place] 56 Medical Branch lisdexamfet 0 Yes 20mg Take 20 mg Univers amine -16 by mouth ity of (VYVANSE) 11:28: every [place] 20 mg 56 morning. Medical capsule Branch ondansetron 0 Yes [id number] 4mg Take 1 Univers (ZOFRAN 1-16 tablet by ity of ODT) 4 mg 00:00: mouth [place] disintegrat 00 every 8 Medic al ing tablet (eight) Branch hours as needed for Nausea and Vomiting (N/V). butalbital- 0 Yes [id number] 1{tbl} Take 1 Univers acetaminoph 1-16 tablet by ity of en-caff 00:00: mouth [place] 50-325-40 00 every 6 Medical mg tablet (six) Branch hours as needed for Pain (scale 4-6) or Pain (scale 7-10). cephALEXin 0 2021- No [id number] 250mg Take 1 Univers 250 mg 03-08- capsule by ity of capsule 00:00: 05:59 mouth [place] 00 :00 every 6 Medical (six) Branch hours for 3 days. lisdexamfet 2021-0 2021- No 20mg Take 20 mg Univers amine 20 mg 03-03 by mouth. it y of capsule 00:00: 00:00 [place] 00 :00 Medical Branch pantoprazol 2021-0 Yes UT e 08-28 Health (ProtoNix) 00:00: 40 MG EC 00 tablet pantoprazol 0 Yes UT e 08-28 Health (ProtoNix) 00:00: 40 MG EC 00 tablet amoxicillin 2020-0 Yes 1{tbl} Q.5D Take 1 UT -clavulanat 6-23 tablet by [facility] e 00:00: mouth 2 (Augmentin) 00 (two) 500-125 MG times a tablet day. for 7 days amoxicillin 0 Yes 1{tbl} Q.5D Take 1 UT -clavulanat 6-23 tablet by [facility] e 00:00: mouth 2 (Augmentin) 00 (two) 500-125 MG times a tablet day. for 7 days Vyvanse 30 Yes UT MG capsule 08-04 Health 00:00: 00 Vyvanse 30 0 Yes UT MG capsule 08-04 Health 00:00: 00 acetaminoph 0 202- No [id number] 1{tbl} Q6H Take 1 UT en-codeine 07-29 06-16 tablet by [facility] (TYLENOL/CO 00:00: 04:59 mouth DEINE #3) 00 :00 every 6 300-30 MG (six) tablet hours if needed for severe pain for up to 7 days. sertraline 0 Yes UT (Zoloft) 25 6-07 Health MG tablet 00:00: 00 sertraline 2020-0 Yes UT (Zoloft) 25 6-07 Health MG tablet 00:00: 00 sertraline 2020-0 Yes UT (Zoloft) 25 6-07 Health MG tablet 00:00: 00 sertraline 2020-0 Yes UT (Zoloft) 25 6-07 Health MG tablet 00:00: 00 fluticasone 2020-0 Yes SHAKE UT (Flonase) 602 LIQUID AND Heal th 50 MCG/ACT 00:00: USE 1 nasal spray 00 SPRAY IN EACH NOSTRIL 1 TIME EACH DAY fluticasone 2020-0 Yes SHAKE UT (Flonase) 6-02 LIQUID AND Heal th 50 MCG/ACT 00:00: USE 1 nasal spray 00 SPRAY IN EACH NOSTRIL 1 TIME EACH DAY fluticasone 2021-0 Yes SHAKE Unive rs propionate 6-02 LIQUID AND ity of 50 00:00: USE 1 [place] mcg/actuati 00 SPRAY IN [facility] sudhakar on nasal EACH Branch spray NOSTRIL 1 TIME EACH DAY gabapentin 2020-0 Yes 100mg QD Take 100 UT (Neurontin) 5-23 mg by Health 100 MG 00:00: mouth 1 capsule 00 (one) time each day. gabapentin 2020-0 Yes 100mg QD Take 100 UT (Neurontin) 5-23 mg by Health 100 MG 00:00: mouth 1 capsule 00 (one) time each day. gabapentin 2020-0 Yes 100mg QD Take 100 UT (Neurontin) 5-23 mg by Health 100 MG 00:00: mouth 1 capsule 00 (one) time each day. gabapentin 2020-0 Yes 100mg QD Take 100 UT (Neurontin) 5-23 mg by Health 100 MG 00:00: mouth 1 capsule 00 (one) time each day. cetirizine 0 Yes 10mg QD Take 10 mg U T (ZyrTEC) 10 5-19 by mouth 1 He alth MG tablet 00:00: (one) time 00 each day. cetirizine 2020-0 Yes 10mg QD Take 10 mg U T (ZyrTEC) 10 5-19 by mouth 1 He alth MG tablet 00:00: (one) time 00 each day. cetirizine 2020-0 Yes 10mg QD Take 10 mg U T (ZyrTEC) 10 5-19 by mouth 1 He alth MG tablet 00:00: (one) time 00 each day. cetirizine 0 Yes 10mg QD Take 10 mg U T (ZyrTEC) 10 5-19 by mouth 1 He alth MG tablet 00:00: (one) time 00 each day. cetirizine 2020-0 2021- No 10mg Take 10 mg Univers 10 mg 5-19 12-05 by mouth. ity of tablet 00:00: 05:59 [place] 00 :00 Medical Branch sertraline 2020-0 Yes UT (Zoloft) 50 5-03 Health MG tablet 00:00: 00 sertraline 2020-0 Yes UT (Zoloft) 50 5-03 Health MG tablet 00:00: 00 atorvastati 2020-0 Yes atorvastat UT n (Lipitor) 3-23 in 10 mg Heal th 10 MG 00:00: tablet tablet 00 atorvastati Yes atorvastat UT n (Lipitor) 3-23 in 10 mg Heal th 10 MG 00:00: tablet tablet 00 atorvastati Yes atorvastat UT n (Lipitor) 3-23 in 10 mg Heal th 10 MG 00:00: tablet tablet 00 atorvastati Yes atorvastat UT n (Lipitor) 3-23 in 10 mg Heal th 10 MG 00:00: tablet tablet 00 ketorolac 2019-02- No 30mg 30 mg, Unive rs (TORADOL) 03-13 Slow IV ity of injection 17:45: 16:51 Push, [place] 30 mg 00 :00 ONCE, 1 Medical dose, Sat Branch 01/12/20 at 1145, Routine
member of parliament approving Restricted medication : CLEMENTINE DHILLON metoclopram 2019-02- No 10mg 10 mg, Uni vers joseph HCl 03-13 Slow IV ity of (REGLAN) 17:45: 16:50 Push, [place] injection 00 :00 ONCE, 1 Medical 10 mg dose, Sat Branch 01/12/20 at 1145, CAROL NaCl 0.9% 2019-02- No 1000mL at 999 Uni vers (NS) bolus 03-13 mL/hr, ity of infusion 16:45: 17:50 1,000 mL, [place] 1,000 mL 00 :00 IV Medical Infusion, Branch ONCE, 1 dose, 01/12/20 at 1045, CAROL dicyclomine 2018-0 Yes 10mg Take 1 Univers (BENTYL) 10 3-12 capsule by it y of mg capsule 00:00: mouth 4 [place] 00 (four) Medical times Branch daily as needed for Abdominal pain. cyclobenzap 2019- Yes 5mg Take 1 Univers rine 5 mg 3-12 tablet by ity o f tablet 00:00: mouth 3 [place] 00 (three) Medical times Branch daily. ondansetron 2018- Yes 4mg Take 1 Univers 4 mg 3-12 tablet by ity of disintegrat 00:00: mouth [place] ing tablet 00 every 8 Medica l (eight) Branch hours as needed for Nausea and Vomiting (N/V). dicyclomine 2019-0 Yes [id number] 10mg Take 1 Univers (BENTYL) 10 3-12 capsule by it y of mg capsule 00:00: mouth 4 [place] 00 (four) Medical times Branch daily as needed for Abdominal pain. cyclobenzap 2018- Yes [id number] 5mg Take 1 Univers rine 5 mg 3-12 tablet by ity o f tablet 00:00: mouth 3 [place] 00 (three) Medical times Branch daily. ondansetron 2018- Yes [id number] 4mg Take 1 Univers 4 mg 3-12 tablet by ity of disintegrat 00:00: mouth [place] ing tablet 00 every 8 Medica l (eight) Branch hours as needed for Nausea and Vomiting (N/V). dicyclomine 2019- Yes [id number] 10mg Take 1 Univers (BENTYL) 10 3-12 capsule by it y of mg capsule 00:00: mouth 4 [place] 00 (four) Medical times Branch daily as needed for Abdominal pain. cyclobenzap 2018- Yes [id number] 5mg Take 1 Univers rine 5 mg 3-12 tablet by ity o f tablet 00:00: mouth 3 [place] 00 (three) Medical times Branch daily. ondansetron 2018- Yes [id number] 4mg Take 1 Univers 4 mg 3-12 tablet by ity of disintegrat 00:00: mouth [place] ing tablet 00 every 8 Medica l (eight) Branch hours as needed for Nausea and Vomiting (N/V). dicyclomine 2018-2021- No [id number] 10mg Take 1 Univers (BENTYL) 10 3-12 01-16 capsule by i ty of mg capsule 00:00: 00:00 mouth 4 [place] 00 :00 (four) Medical times Branch daily as needed for Abdominal pain. cyclobenzap 2018-2021- No [id number] 5mg Take 1 Univers rine 5 mg 3-12 01-16 tablet by ity of tablet 00:00: 00:00 mouth 3 [place] 00 :00 (three) Medical times Branch daily. ondansetron 2018-2021- No [id number] 4mg Take 1 Univers 4 mg 3-12 01-16 tablet by ity of disintegrat 00:00: 00:00 mouth [place] ing tablet 00 :00 every 8 Medica l (eight) Branch hours as needed for Nausea and Vomiting (N/V). ondansetron 2018-0 Yes 4mg Take 1 Univ ers (ZOFRAN 2-16 tablet by ity of ODT) 4 mg 00:00: mouth [place] disintegrat 00 every 8 Medic al ing tablet (eight) Branch hours as needed for Nausea and Vomiting (N/V). benzonatate 2018-0 Yes 100mg Take 1 Uni vers 100 mg 2-16 capsule by ity of capsule 00:00: mouth 3 [place] 00 (three) Medical times Branch daily as needed for Cough. ibuprofen 2018-0 Yes 600mg Take 1 Unive rs 600 mg 2-16 tablet by ity of tablet 00:00: mouth [place] 00 every 6 Medical (six) Branch hours as needed for Pain (scale 4-6). ondansetron 2018-0 Yes 4mg Take 1 Univ ers (ZOFRAN 2-16 tablet by ity of ODT) 4 mg 00:00: mouth [place] disintegrat 00 every 8 Medic al ing tablet (eight) Branch hours as needed for Nausea and Vomiting (N/V). benzonatate 2018-0 Yes 100mg Take 1 Uni vers 100 mg 2-16 capsule by ity of capsule 00:00: mouth 3 [place] 00 (three) Medical times Branch daily as needed for Cough. ibuprofen 2018-0 Yes 600mg Take 1 Unive rs 600 mg 2-16 tablet by ity of tablet 00:00: mouth [place] 00 every 6 Medical (six) Branch hours as needed for Pain (scale 4-6). ondansetron 2018-0 Yes 4mg Take 1 Univ ers (ZOFRAN 2-16 tablet by ity of ODT) 4 mg 00:00: mouth [place] disintegrat 00 every 8 Medic al ing tablet (eight) Branch hours as needed for Nausea and Vomiting (N/V). benzonatate 2018-0 Yes 100mg Take 1 Uni vers 100 mg 2-16 capsule by ity of capsule 00:00: mouth 3 [place] 00 (three) Medical times Branch daily as needed for Cough. ibuprofen 2018-0 Yes 600mg Take 1 Unive rs 600 mg 2-16 tablet by ity of tablet 00:00: mouth [place] 00 every 6 Medical (six) Branch hours as needed for Pain (scale 4-6). ondansetron 2018-0 2- No 4mg Take 1 Uni vers (ZOFRAN 2-16 03-08 tablet by ity of ODT) 4 mg 00:00: 00:00 mouth [place] disintegrat 00 :00 every 8 Medic al ing tablet (eight) Branch hours as needed for Nausea and Vomiting (N/V). benzonatate No 100mg Take 1 Un angy 100 mg 04-08 capsule by ity of capsule 00:00: 00:00 mouth 3 [place] 00 :00 (three) Medical times Branch daily as needed for Cough. ibuprofen No 600mg Take 1 Univ ers 600 mg 16 03-08 tablet by ity of tablet 00:00: 00:00 mouth [place] 00 :00 every 6 Medical (six) Branch hours as needed for Pain (scale 4-6). esomeprazol Yes TK 1 C PO U nivers e (NEXIUM) 9-14 ONCE D. ity of 20 mg 00:00: [place] capsule 00 Medical Branch Butalbital- Yes TK 1 C PO U nivers Acetaminoph 9-14 QD. ity of en-Caff 00:00: (ORBIVAN) 00 Medical 50-300-40 Branch mg per capsule proMETHazin Yes TK 1 T PO U nivers e 9-14 HS PRF ity of (PHENERGAN) 00:00: NAUSEA AND [place] 12.5 mg 00 VOMITING. Medical tablet DO NOT Branch DRIVE WHILE ON THIS MEDICATION . CAUSES DROWSINESS . CARAFATE Yes TK 1 TEA Unive rs 100 mg/mL 9-14 PO WITH ity of suspension 00:00: EVERY [place] 00 MEAL. Medical Branch esomeprazol Yes TK 1 C PO U nivers e (NEXIUM) 9-14 ONCE D. ity of 20 mg 00:00: [place] capsule 00 Medical Branch Butalbital- Yes TK 1 C PO U nivers Acetaminoph 9-14 QD. ity of en-Caff 00:00: [place] (ORBIVAN) 00 Medical 50-300-40 Branch mg per capsule proMETHazin Yes TK 1 T PO U nivers e 9-14 HS PRF ity of (PHENERGAN) 00:00: NAUSEA AND [place] 12.5 mg 00 VOMITING. Medical tablet DO NOT Branch DRIVE WHILE ON THIS MEDICATION . CAUSES DROWSINESS . CARAFATE Yes TK 1 TEA Unive rs 100 mg/mL 11-04 PO WITH ity of suspension 00:00: EVERY [place] 00 MEAL. Medical Branch esomeprazol Yes TK 1 C PO U nivers e (NEXIUM) 11-04 ONCE D. ity of 20 mg 00:00: [place] capsule 00 Medical Branch Butalbital- Yes TK 1 C PO U nivers Acetaminoph 11-04 QD. ity of en-Caff 00:00: [place] (ORBIVAN) 00 Medical 50-300-40 Branch mg per capsule proMETHazin Yes TK 1 T PO U nivers e 11-04 HS PRF ity of (PHENERGAN) 00:00: NAUSEA AND [place] 12.5 mg 00 VOMITING. Medical tablet DO NOT Branch DRIVE WHILE ON THIS MEDICATION . CAUSES DROWSINESS . CARAFATE Yes TK 1 TEA Unive rs 100 mg/mL 11-04 PO WITH ity of suspension 00:00: EVERY 00 MEAL. Medical Branch esomeprazol 2021- No TK 1 C PO Univers e (NEXIUM) 11-04 ONCE D. ity o f 20 mg 00:00: 00:00 [place] capsule 00 :00 Medical Branch Butalbital- 2021- No TK 1 C PO Univers Acetaminoph 11-04 QD. ity of en-Caff 00:00: 00:00 [place] (ORBIVAN) 00 :00 Medical 50-300-40 Branch mg per capsule proMETHazin 2021- No TK 1 T PO Univers e 11-04 HS PRF ity of (PHENERGAN) 00:00: 00:00 NAUSEA AND [place] 12.5 mg 00 :00 VOMITING. Medical tablet DO NOT Branch DRIVE WHILE ON THIS MEDICATION . CAUSES DROWSINESS . CARAFATE 2021- No TK 1 TEA Univ ers 100 mg/mL 11-04 PO WITH ity of suspension 00:00: 00:00 EVERY [place] 00 :00 MEAL. Medical Branch naproxen Yes 500mg Take 1 Univer s (NAPROSYN) 6-27 tablet by ity of 500 mg 00:00: mouth 2 [place] tablet 00 (two) Medical times Branch daily with meals. naproxen Yes 500mg Take 1 Univer s (NAPROSYN) 6-27 tablet by ity of 500 mg 00:00: mouth 2 [place] tablet 00 (two) Medical times Branch daily with meals. naproxen Yes 500mg Take 1 Univer s (NAPROSYN) 6-27 tablet by ity of 500 mg 00:00: mouth 2 [place] tablet 00 (two) Medical times Branch daily with meals. naproxen 2021- No 500mg Take 1 Unive rs (NAPROSYN) 6-27 03-08 tablet by ity of 500 mg 00:00: 00:00 mouth 2 [place] tablet 00 :00 (two) Medical times Branch daily with meals. naproxen 2014-02 Yes 500mg Take 1 Tab Un angy (NAPROSYN) 2-18 by mouth 2 ity of 500 mg 00:00: (two) [place] tablet 00 times Medical daily with Branch meals. traMADOL 2014-02 Yes 50mg Take 1 Tab Uni vers (ULTRAM) 50 2-18 by mouth ity of mg tablet 00:00: every 6 [place] 00 (six) Medical hours as Branch needed for Pain (scale 4-6). naproxen 2014-02 Yes 500mg Take 1 Tab Un angy (NAPROSYN) 2-18 by mouth 2 ity of 500 mg 00:00: (two) [place] tablet 00 times Medical daily with Branch meals. traMADOL 2014-02 Yes 50mg Take 1 Tab Uni vers (ULTRAM) 50 2-18 by mouth ity of mg tablet 00:00: every 6 [place] 00 (six) Medical hours as Branch needed for Pain (scale 4-6). naproxen 2014-02 Yes 500mg Take 1 Tab Un angy (NAPROSYN) 2-18 by mouth 2 ity of 500 mg 00:00: (two) [place] tablet 00 times Medical daily with Branch meals. traMADOL 2014-02 Yes 50mg Take 1 Tab Uni vers (ULTRAM) 50 2-18 by mouth ity of mg tablet 00:00: every 6 [place] 00 (six) Medical hours as Branch needed for Pain (scale 4-6). naproxen 2014-02- No 500mg Take 1 Tab U nivers (NAPROSYN) 2-18 16 by mouth 2 it y of 500 mg 00:00: 00:00 (two) [place] tablet 00 :00 times Medical daily with Branch meals. traMADOL 2014-02- 50mg Take 1 Tab Un angy (ULTRAM) 50 04-10 by mouth ity of mg tablet 00:00: 00:00 every 6 [place] 00 :00 (six) Medical hours as Branch needed for Pain (scale 4-6). Xanax TABS Xanax TABS Yes [facility] Physici ans Lipitor Lipitor Yes UT TABS TABS Physici ans Immunizations Ordered Filled Immunization Date Status Comments [facility] Immunization Name Name SARS-COV-2 COVID-19 2020-06-25 Completed Unive rsity of MODERNA VACCINE 00:00:00 [facility] SARS-COV-2 COVID-19 2020-05-28 Completed Unive rsity of MODERNA VACCINE 00:00:00 [facility] Influenza, High 2015-07-11 [facility] Dose Seasonal, 00:00:00 Preservative Free Influenza, High 2015-07-11 Completed [facility] Dose Seasonal 00:00:00 Influenza, High 2015-07-11 Completed [facility] Dose Seasonal 00:00:00 Vital Signs Vital Name Observation Time Observation Value Comments Source Body height 2021-04-02 20:34:00 [facility] cm [facility] Body weight 2021-04-02 20:34:00 88.451 kg [facility] BMI 2021-04-02 20:34:00 32.45 kg/m2 [facility] Systolic blood 2021-03-08 20:00:00 109 mm[Hg] Univer sity of pressure [facility] Diastolic blood 2021-03-08 20:00:00 71 mm[Hg] Unive rsity of pressure [facility] Heart rate 2021-03-08 20:00:00 63 /min [facility] Respiratory rate 2021-03-08 20:00:00 16 /min [facility] Oxygen saturation in 2021-03-08 20:00:00 99 /min [facility] Arterial blood by [facility] Pulse oximetry Branch Body temperature 2021-03-08 17:04:45 35.89 [facility] 2021-03-08 17:00:00 165.1 cm [facility] [place] [facility] Body weight 2021-03-08 17:00:00 90.719 kg [facility] [place] [facility] BMI 2021-03-08 17:00:00 33.28 kg/m2 [facility] [place] [facility] Body height 2020-09-03 16:19:00 165.1 cm [facility] Body weight 2020-09-03 16:19:00 91.627 kg [facility] BMI 2020-09-03 16:19:00 33.61 kg/m2 [facility] Systolic blood 2020-01-12 18:00:00 115 mm[Hg] Univer sity of pressure [place] [facility] Diastolic blood 2020-01-12 18:00:00 72 mm[Hg] Unive rsity of pressure [place] [facility] Heart rate 2020-01-12 18:00:00 65 /min [facility] [place] [facility] [place] Body temperature 2020-01-12 18:00:00 37.22 Mae [facility] ersity [facility] [place] [facility] Respiratory rate 2020-01-12 18:00:00 17 /min [facility] ers[facility] [place] [facility] Oxygen saturation in 2020-01-12 18:00:00 97 /min University of Arterial blood by [place] Pulse oximetry Branch Body height 2020-01-12 16:22:00 165.1 cm [facility] [place] [facility] Body weight 2020-01-12 16:22:00 96.616 kg [facility] [place] [facility] BMI 2020-01-12 16:22:00 35.45 kg/m2 [facility] [place] [facility] Systolic blood 2020-01-12 18:00:00 115 mm[Hg] Univer sity of pressure [place] [facility] Diastolic blood 2020-01-12 18:00:00 72 mm[Hg] Unive rsity of pressure [place] [facility] Heart rate 2020-01-12 18:00:00 65 /min [facility] [place] [facility] Body temperature 2020-01-12 18:00:00 37.22 Mae [facility] ers[facility] [place] [facility] Respiratory rate 2020-01-12 18:00:00 17 /min Univ ers[facility] [place] [facility] Oxygen saturation in 2020-01-12 18:00:00 97 /min University of Arterial blood by [place] Pulse oximetry Branch Body height 2020-01-12 16:22:00 165.1 cm [facility] [place] [facility] Body weight 2020-01-12 16:22:00 96.616 kg [facility] [place] [facility] BMI 2020-01-12 16:22:00 35.45 kg/m2 [facility] [place] [facility] Systolic blood 2019-10-23 00:59:41 159 mm[Hg] Univer sity of pressure [place] [facility] Diastolic blood 2019-10-23 00:59:41 92 mm[Hg] Unive rsity of pressure [place] [facility] Heart rate 2019-10-23 00:59:41 87 /min [facility] [place] [facility] Respiratory rate 2019-10-23 00:59:41 16 /min [facility] [place] [facility] Oxygen saturation in 2019-10-23 00:59:41 98 /min University of Arterial blood by [facility] Pulse oximetry Branch Body temperature 2019-10-22 21:22:00 37.39 Mae [facility] [place] [facility] Body height 2019-10-22 21:22:00 165.1 cm [facility] [place] [facility] Body weight 2019-10-22 21:22:00 94.348 kg [facility] [place] [facility] BMI 2019-10-22 21:22:00 34.61 kg/m2 [facility] [place] [facility] Systolic blood 2019-10-23 00:59:41 159 mm[Hg] Univer sity of pressure [place] [facility] Diastolic blood 2019-10-23 00:59:41 92 mm[Hg] Unive rsity of pressure [place] [facility] Heart rate 2019-10-23 00:59:41 87 /min [facility] [place] [facility] Respiratory rate 2019-10-23 00:59:41 16 /min [facility] ers[facility] [place] [facility] Oxygen saturation in 2019-10-23 00:59:41 98 /min University of Arterial blood by [facility] sudhakar Pulse oximetry Branch Body temperature 2019-10-22 21:22:00 37.39 Mae [facility] ers[facility] [place] [facility] Body height 2019-10-22 21:22:00 165.1 cm [facility] [place] [facility] Branch Body weight 2019-10-22 21:22:00 94.348 kg [facility] BMI 2019-10-22 21:22:00 34.61 kg/m2 [facility] Body height 2019-07-26 13:47:00 65 [in_us] [place] [facility] Weight 2019-07-26 13:47:00 208 [lb_av] [place] [facility] Body mass index 2019-07-26 13:47:00 34.61 kg/m2 [facility] (BMI) [Ratio] Procedures Procedure Date / Time Performing Clinician Source Performed URINALYSIS 2021-03-08 18:47:00 Sebastien Crowell [facility] RAPID INFLUENZA A/B 2021-03-08 17:22:00 Sebastien Crowell [facility] COVID-19 (ID NOW RAPID 2021-03-08 17:22:00 Sebastien Crowell [facility] TESTING) [facility] SHOULDER WO CONTRAST 2020-08-18 16:11:56 Je Gonzales [facility] MRI XR SHOULDER 2+ VIEWS 2020-07-29 21:43:48 Je Gonzales [facility] LEFT CT HEAD WO CONTRAST 2020-01-12 17:27:12 Clementine Dhillon [facility] COMP. METABOLIC PANEL 2020-01-12 16:49:00 Clementine Dhillon [facility] ([id number]) [facility] CBC WITH DIFF 2020-01-12 16:49:00 Clementine [facility] TROPONIN I 2019-10-22 23:05:00 Maria Victoria Mendoza [facility] BASIC METABOLIC PANEL 2019-10-22 23:05:00 Maria Victoria Mendoza [facility] (NA, K, CL, CO2, Medical Branch GLUCOSE, BUN, CREATININE, CA) CBC WITH DIFF 2019-10-22 23:05:00 Maria Victoria Mendoza [facility] XR CHEST 1 VW 2019-10-22 23:03:00 Maria Victoria Mendoza [facility] EKG-12 LEAD 2019-10-22 22:46:02 Maria Victoria Mendoza [facility] CONSENT/REFUSAL FOR 2019-10-22 21:14:35 Doctor Unassigned, No Un [facility] DIAGNOSIS AND TREATMENT Name Medical Branch NOTICE OF PRIVACY 2019-10-22 21:13:44 Doctor Unassigned, No Univ [facility] PRACTICES Name [facility] MR Dameon lorenzo contrast 2019-03-21 00:00:00 [place] [facility] [id number] [facility]end[facility] History of Breast [facility] augmentation History of Nose surgery [facility] Encounters Start End Encounter Admission Attending Care Care Encounter Source Date/Time Date/Time Type Type Clinicians Facility Department ID 2020-12-20 Emergency [facility] [id number] Univers 07:03:38 ity [facility] 2020-12-19 Emergency [facility] [id number] [facility]07-29 Out[facility] [id number] [place] 16:35:09 Health 2020-07-29 Outpatient [facility] [id number] [place] 16:24:43 [facility] 2020-07-28 Outpatient AMY [facility] [id number] [place] 11:07:42 [facility] 2021-10-07 2021-10-07 Outpatient Mary HOWARD [facility] [id number] Univers 14:00:00 14:00:00 SENDIL [id number] [facility] 2021-06-18 2021-06-20 Outpatient [facility] [id number] [place] 00:00:00 00:00:[address] 2021-04-02 2021-04-02 Office RADHA Reyes [facility]TH[facility] [id number] [place] 14:15:00 15:35:00 Visit Ewelina SUGAR 350.1.13.58 He alth [place] 9.2.7.2.686 [id number] 2021-03-08 2021-03-08 Emergency X [facility] ERT [id number] Univers 10:58:00 15:13:00 SEBASTIEN [facility] 2021-03-08 2021-03-08 Emergency [facility] [id number] Univers 10:58:00 15:13:00 Sebastien RUCKER 350.1.13.10 ity [facility] 4.2.7.2.686 [facility] [id number] [address] 2020-09-03 2020-09-03 Office RADHA Prather ORTHO [id number] [place] 10:31:01 13:50:05 Visit Emmett SUGAR 350.1.13.58 He alth [place] 9.2.7.2.686 [id number] 2020-07-30 2020-07-30 EXT [facility] OP Janet, EXT [facility] [id number] [place] 00:00:00 00:00:00 Je LOCATION 350.1.13.58 H ealth 9.2.7.2.686 [id number] 2020-07-29 2020-07-29 Office RADHA Gonzales ORTHO [id number] [place] 16:10:41 17:07:48 Visit Je SUGAR 350.1.13.58 He alth [place] 9.2.7.2.686 [id number] 2020-07-29 2020-07-29 Office RADHA Reyes ORTHO [id number] [place] 15:25:24 15:40:24 Visit Ewelina SUGAR 350.1.13.58 He alth [place] 9.2.7.2.686 [id number] 1 2020-06-25 2020-06-25 Outpatient Mary AHRDEN, [facility] [id number] Univers 08:50:00 08:50:00 TREVON ity [facility] 2020-05-28 2020-05-28 Outpatient [facility] [id number] Univers 17:20:00 17:20:00 ity [facility] 2020-01-23 2020-01-23 [facility] [id number] [place] 15:15:00 15:15:00 t; EWELINA REYES, - [facility] Phys ici EAN THEODORE Land 2 ans DPM 2020-01-15 2020-01-15 Telephone JOSE ALFREDO Potts [id number] [facility] 00:00:00 00:00:00 Su [facility]13.10 [facility] 4.2.7.2.686 [facility] [id number] [address] 2020-01-15 2020-01-15 Telephone JOSE ALFREDO Potts [id number] 00:00:00 00:00:00 Su HAND 350.1.13.10 [facility] 4.2.7.2.686 [id number] [facility] 2020-01-12 2020-01-12 Emergency [facility] [id number] [facility] 10:18:00 12:18:00 Allyno Vivian Edward 350.1.13.10 ity of [place] 4.2.7.2.686 [facility] [id number] [address] 2020-01-12 2020-01-[address] [facility] 1.2.840.114 [id number] 10:18:00 12:18:00 Allyno Vivian Edward 350.1.13.10 [place] 4.2.7.2.686 [place] [id number] [facility] 2019-10-22 2019-10-22 [facility] [id number] [facility] 17:03:00 20:02:00 Maria Victoria Mcknight Edward 350.1.13.10 i ty [facility] [place] 4.2.7.2.686 [facility] [id number] [address] 2019-10-22 2019-10-22 Emergency [facility] [id number] 17:03:00 20:02:00 Maria Victoria S Edward 350.1.13.10 [place] 4.2.7.2.686 [place] [id number] [facility] 2019-07-23 2019-07-23 [facility] [id number] [place] 10:45:00 10:45:00 t; EWELINA REYES, - [place] Phys angela THEODORE DPM [place] 2 ans DP 2019-02-23 2019-02-23 [facility] [id number] [place] 13:00:00 13:00:00 t; EWELINA REYES, - [place] Phys angela THEODORE DPM Land 2 ans DPM 2017-03-15 2017-03-15 AppointRADHA Dwyer [facility] [id number] [place] 13:45:00 13:45:00 t; EWELINA REYES Phys ici MATTHEW, DPM ans DPYohannes 2017-03-02 2017-03-02 AppointRADHA Dwyer [facility] [id number] [place] 08:30:00 08:30:00 t; EWELINA REYES Phys ici MATTHEW, DPM ans DPM Results Test Description Test Time Test Comments Results Result Comments Source SARS-CoV-2 (COVID-19) RNA [Presence] in Respiratory sp ecimen by 2021-06-18 20:02:40 OBIE with probe detection Test Item Value Reference Range Interpretation Comme nts SARS-CoV-2 (COVID-19) RNA [Presence] in Respiratory specimen by Not detected OBIE with probe detection (test code = 90484-0) Whether patient is employed in a healthcare setting (test code = Un known 67482-0) Whether the patient has symptoms related to condition of interest U nknown (test code = 66997-7) Whether the patient was hospitalized for condition of interest Unkn own (test code = 78273-4) Whether the patient was admitted to intensive care unit (ICU) for U nknown condition of interest (test code = 97885-7) Whether patient resides in a congregate care setting (test code = U nknown 73045-9) status (test code = 09544-7) Unknown Date and time of symptom onset (test code = 45544-0) Unknown XR shoulder 2+ views [id number] 01:48:47No acute fracture or dislocation or other bony lesion noted. No significant or notable soft tissue abnormalities or calcifications noted.No significant osteophyte formation or joint space narrowing.Slight humeral lift is presentUT [facility] Meaning. METABOLIC PANEL (28742) 2020-01-12 17:44:00 Test Item Value Reference Range Interpretation Comments NA (test code = 138 mmol/L 135-145 9760226742) K (test code = 3.8 mmol/L 3.5-5 2136288214) CL (test code = 104 mmol/L 98-108 1690855209) CO2 TOTAL (test code = 23 mmol/L 23-31 1243918105) AGAP (test code = 2-16 6957621810) BUN (test code = 13 mg/dL 7-23 4765986013) GLUCOSE (test code = 122 mg/dL 70-110 H 2629171850) CREATININE (test code = 0.67 mg/dL 0.5-1.04 7127105497) TOTAL BILI (test code = 2.1 mg/dL 0.1-1.1 H 2795929381) CALCIUM (test code = 10.2 mg/dL 8.6-10.6 8909610069) T PROTEIN (test code = 7.5 g/dL 6.3-8.2 6702410036) ALBUMIN (test code = 4.5 g/dL 3.5-5 9770567505) ALK PHOS (test code = 97 U/L 34-122 0111570589) ALTv (test code = 24 U/L 5-35 1742-6) AST(SGOT) (test code = 31 U/L 13-40 6587208889) eGFR Calculation mL/min/1.73m2 (Non-) (test code = 2446091071) eGFR Calculation mL/min/1.73m2 () (test code = 4040829239) BETSY (test code = BETSY) Association of Glomerular Filtration Rate (GFR) and Staging of Kidney Disease* + --+ --+ ------+| GFR (mL/min/1.73 m2) ?| With Kidney Damage ?| ?Without Kidney Damage+ --------+ --------+ +| ?>90 ?| ?Stage one ?| ? Normal ?+ ---+ ---+ -------+| ?60-89 ?| ?Stage two ?| ? Decreased GFR ? + --+ --+ ------+| ?30-59 ?| ?Stage three ?| ? Stage three ? + --+ --+ ------+| ?15-29 ?| ?Stage four ? | ? Stage four ?+ ---+ ---+ -------+| ?<15 (or dialysis) ? ?| ?Stage five ? | ? Stage five ?+ ---+ ---+ -------+ *Each stage assumes the associated GFR level has been in effect for at least three months. ?Stages 1 to 5, with or without kidney disease, indicate chronic kidney disease. Notes: Determination of stages one and two (with eGFR >59mL/min/1.73 m2) requires estimation of kidney damage for at least three months as defined by structural or functional abnormalities of the kidney, manifested by either:Pathological abnormalities or Markers of kidney damage (including abnormalities in the composition of the blood or urine or abnormalities in imaging tests). Lab Interpretation Abnormal (test code = 45999-8) [facility] WITH [id number] 17:05:00 Test Item Value Reference Range Interpretation Comments WBC (test code = See_Comment H [Automated 6090-2) message] The sy stem which generated this result transmitted reference range : 4.30 - 11.10 10*3/?L. The reference range was not used to interpret this result as normal/abnormal . RBC (test code = See_Comment [Automated 789-8) message] The sy stem which generated this result transmitted reference range : 3.93 - 5.25 10*6/?L. The reference range was not used to interpret this result as normal/abnormal . HGB (test code = 14.9 g/dL 11.6-15 718-7) HCT (test code = 44.0 % 35.7-45.2 4544-3) MCV (test code = 89.1 fL 80.6-95.5 787-2) MCH (test code = 30.2 pg 25.9-32.8 785-6) MCHC (test code = 33.9 g/dL 31.6-35.1 786-4) RDW-SD (test code = 41.7 fL 39-49.9 45045-6) RDW-CV (test code = 12.7 % 12-15.5 788-0) PLT (test code = See_Comment [Automated 777-3) message] The sy stem which generated this result transmitted reference range : 166 - 358 10*3/ ?L. The reference r birgit was not used to interpret this result as normal/abnormal . MPV (test code = 10.6 fL 9.5-12.9 39566-3) NRBC/100 WBC (test See_Comment [Automat ed code = 8170458214) message] The system which generated this result transmitted reference range : 0.0 - 10.0 /100 WBCs. The refer ence range was not u sed to interpret th is result as normal/abnormal . NRBC x10^3 (test code <0.01 See_Comment [Auto mated = 9995904391) message] The s ystem which generated this result transmitted reference range : 10*3/?L. The reference range was not used to interpret this result as normal/abnormal . GRAN MAT (NEUT) % 76.9 % (test code = 770-8) IMM GRAN % (test code 0.40 % = 6739958877) LYMPH % (test code = 14.6 % 736-9) MONO % (test code = 5.7 % 5905-5) EOS % (test code = 2.0 % 713-8) BASO % (test code = 0.4 % 706-2) GRAN MAT x10^3(ANC) 8.60 10*3/uL 1.88-7.09 H (test code = 9049844533) IMM GRAN x10^3 (test 0.05 10*3/uL 0-0.06 code = 5171044088) LYMPH x10^3 (test code 1.63 10*3/uL 1.32-3.29 = 731-0) MONO x10^3 (test code 0.64 10*3/uL 0.33-0.92 = 742-7) EOS x10^3 (test code = 0.22 10*3/uL 0.03-0.39 711-2) BASO x10^3 (test code 0.05 10*3/uL 0.01-0.07 = 704-7) Lab Interpretation Abnormal (test code = 23398-2) [facility] [id number] 23:53:00 Test Item Value Reference Range Interpretation Comments TROPONIN I (test <0.012 See_Comment [Automated code = 8057965083) message] The system which generated this result transmitted reference range : <=0.034 ng/mL. The reference range was not used to interpr et this result as normal/abnormal . BETSY (test code = Equal or Less than BETSY) 0.034 ng/ml---Normal ?Note: Cardiac troponin begins to rise 3-4 hours after the onset of ischemia. Repeat in 4-6 hours if the sample was drawn within 3-4 hours of the onset of the symptom and found normal. Between 0.035 and 0.120 ng/mL--- Borderline. Questionable myocardial injury or necrosis ? ?Note: Serial measurement may be necessary to confirm or exclude the diagnosis of myocardial injury or necrosis; Clinical correlation (symptoms, EKGs, imaging studies, and others) required; Repeat in 4-6 hours if clinically indicated. ? Equal or Higher than 0.121 ng/mL---Abnormal. Myocardial Injury or Necrosis Likely ? Biotin has been reported to cause a negative bias, interpret results relative to patient's use of biotin. ? Lab Interpretation Normal (test code = 70435-1) [facility] METABOLIC PANEL (NA, K, CL, CO2, GLUCOSE, BUN, CREATININE, CA)2019-10-22 23:41:00 Test Item Value Reference Range Interpretation Comments NA (test code = 137 mmol/L 135-145 1619085440) K (test code = 4.1 mmol/L 3.5-5 9077029712) CL (test code = 105 mmol/L 98-108 6485014362) CO2 TOTAL (test code = 26 mmol/L -31 2910403653) AGAP (test code = 2-16 1896488981) BUN (test code = 18 mg/dL 7-23 8244443871) GLUCOSE (test code = 105 mg/dL 70-110 6230247612) CREATININE (test code 0.72 mg/dL 0.5-1.04 = 8965422810) CALCIUM (test code = 9.9 mg/dL 8.6-10.6 0020999446) eGFR Calculation mL/min/1.73m2 (Non-) (test code = 9512467393) eGFR Calculation mL/min/1.73m2 () (test code = 1483071927) BETSY (test code = BETSY) Association of Glomerular Filtration Rate (GFR) and Staging of Kidney Disease* + -+ + ---+| GFR (mL/min/1.73 m2) ?| With Kidney Damage ?| ?Without Kidney Damage+ -------+ ------+ ---------+| ?>90 ?| ?Stage one ?| ? Normal ?+ --+ -+ ----+| ?60-89 ?| ?Stage two ?| ? Decreased GFR ? + -+ + ---+| ?30-59 ?| ?Stage three ?| ? Stage three ? + -+ + ---+| ?15-29 ?| ?Stage four ? | ? Stage four ?+ --+ -+ ----+| ?<15 (or dialysis) ? ?| ?Stage five ? | ? Stage five ?+ --+ -+ ----+ *Each stage assumes the associated GFR level has been in effect for at least three months. ?Stages 1 to 5, with or without kidney disease, indicate chronic kidney disease. Notes: Determination of stages one and two (with eGFR >59mL/min/1.73 m2) requires estimation of kidney damage for at least three months as defined by structural or functional abnormalities of the kidney, manifested by either:Pathological abnormalities or Markers of kidney damage (including abnormalities in the composition of the blood or urine or abnormalities in imaging tests). [facility] WITH [id number] 23:14:00 Test Item Value Reference Range Interpretation Comments WBC (test code = See_Comment [Automated 1413-2) message] The sy stem which generated this result transmitted reference range : 4.30 - 11.10 10*3/?L. The reference range was not used to interpret this result as normal/abnormal . RBC (test code = See_Comment [Automated 535-8) message] The sy stem which generated this result transmitted reference range : 3.93 - 5.25 10*6/?L. The reference range was not used to interpret this result as normal/abnormal . HGB (test code = 15.5 g/dL 11.6-15 H 718-7) HCT (test code = 46.5 % 35.7-45.2 H 4544-3) MCV (test code = 89.6 fL 80.6-95.5 787-2) MCH (test code = 29.9 pg 25.9-32.8 785-6) MCHC (test code = 33.3 g/dL 31.6-35.1 786-4) RDW-SD (test code = 42.0 fL 39-49.9 74595-6) RDW-CV (test code = 12.8 % 12-15.5 788-0) PLT (test code = See_Comment [Automated 777-3) message] The sy stem which generated this result transmitted reference range : 166 - 358 10*3/ ?L. The reference r birgit was not used to interpret this result as normal/abnormal . MPV (test code = 10.0 fL 9.5-12.9 15304-6) NRBC/100 WBC (test See_Comment [Automat ed code = 6638419315) message] The system which generated this result transmitted reference range : 0.0 - 10.0 /100 WBCs. The refer ence range was not u sed to interpret th is result as normal/abnormal . NRBC x10^3 (test code <0.01 See_Comment [Auto mated = 3353339457) message] The s ystem which generated this result transmitted reference range : 10*3/?L. The reference range was not used to interpret this result as normal/abnormal . GRAN MAT (NEUT) % 58.1 % (test code = 770-8) IMM GRAN % (test code 0.30 % = 9853446238) LYMPH % (test code = 28.2 % 736-9) MONO % (test code = 8.3 % 5905-5) EOS % (test code = 4.7 % 713-8) BASO % (test code = 0.4 % 706-2) GRAN MAT x10^3(ANC) 5.32 10*3/uL 1.88-7.09 (test code = 9836584891) IMM GRAN x10^3 (test 0.03 10*3/uL 0-0.06 code = 2806105580) LYMPH x10^3 (test code 2.59 10*3/uL 1.32-3.29 = 731-0) MONO x10^3 (test code 0.76 10*3/uL 0.33-0.92 = 742-7) EOS x10^3 (test code = 0.43 10*3/uL 0.03-0.39 H 711-2) BASO x10^3 (test code 0.04 10*3/uL 0.01-0.07 = 704-7) Lab Interpretation Abnormal (test code = 42383-2) [facility]"
[2021-07-19] MEDS ORDERED: FAMOTIDINE 20 MG/2 ML VIAL IV ONE (09:55)
[2021-07-19] MEDS ORDERED: ONDANSETRON 4 MG/2 ML VIAL ONE (09:55)
[2021-07-19] MEDS ORDERED: NA CHLORIDE 0.9% 1,000 ML ONE (09:55)
[2021-07-19 10:04] LABS: Absolute Lymphocytes (CBC) 2.1 K/uL (0.7-4.9); Hematocrit 43.4 % (36.0-45.0); Lymphocytes % 22.8 % (15.3-44.8); MPV 8.1 fL (7.6-11.3); RBC Red Blood Cell Count 4.92 M/uL (3.86-4.86)
[2021-07-19 10:13] LABS: Albumin 3.7 g/dL (3.4-5.0); Bilirubin Total 1.1 mg/dL (0.2-1.0); Potassium 3.9 mmol/L (3.5-5.1); Protein, Total 7.2 g/dL (6.4-8.2)
[2021-07-19] MEDS ORDERED: PROMETHAZINE INJ 25 MG/ML AMP ONE (10:30)
--- NOTE | 2021-07-19 11:38 | RAD REPORT ---
EXAM DESCRIPTION: RAD - Chest Single View - 07/19/2021 11:08 am CLINICAL HISTORY: CHEST PAIN Chest pain. COMPARISON: Chest Single View dated 10/16/2017; CHEST PA AND LAT 2 VIEW dated 07/19/2007 FINDINGS: Portable technique limits examination quality. The lungs are grossly clear. The heart is normal in size. No displaced fractures. IMPRESSION: No acute intrathoracic process suspected.
--- NOTE | 2021-07-19 13:14 | ER ---
Nurse's Notes [facility] Name: Evon Cain Age: 61 yrs Sex: Female : 1960 Arrival Date: 07/19/2021 Time: 09:26 Bed 2 Private MD: Diagnosis: Chest pain, unspecified Presentation: 07/19 09:31 Chief complaint: EMS states: "pt reporting chest pain that started at 0600 this AM this jd3 is in the middle of her chest. she did report having a history of GERD. pt has episodes of belching along with the pain. pt was was recently released from [facility] for chest pain and was told to fallow up, but the pt reported she was unable to fallow up at this time.". Coronavirus screen: At this time, the client does not indicate any symptoms associated with coronavirus-19. Ebola Screen: No symptoms or risks identified at this time. Initial Sepsis Screen: Does the patient meet any 2 criteria? No. Patient's initial sepsis screen is negative. Does the patient have a suspected source of infection? No. Patient's initial sepsis screen is negative. Risk Assessment: Do you want to hurt yourself or someone else? Patient reports no desire to harm self or others. Onset of symptoms was July 19, 2021. 09:31 Method Of Arrival: [facility] jd3 09:31 Acuity: ANA 3 jd3 Historical: - Allergies: 09:34 Latex, Natural Rubber; jd3 - Home Meds: 09:34 rosuvastatin 10 mg oral tab [Active]; methocarbamol 500 mg Oral tab [Active]; jd3 cetirizine 10 mg oral tab [Active]; gabapentin 100 mg oral cap [Active]; pantoprazole 40 mg oral TbEC [Active]; meclizine 25 mg Oral tab [Active]; citalopram 20 mg tab [Active]; lisdexamfetamine 30 mg oral cap [Active]; - PMHx: 09:34 Anxiety; Hyperlipidemia; kidney infection; trigeminal neuralgia; trigiminal neuralgia; jd3 - Immunization history:: Adult Immunizations up to date, Client reports receiving the 2nd dose of the Covid vaccine. - Social history:: Smoking status: Patient/guardian denies using tobacco, but has a distant history of tobacco abuse. Screenin:38 Abuse screen: Denies threats or abuse. Nutritional screening: No deficits noted. jd3 Tuberculosis screening: No symptoms or risk factors identified. Fall Risk IV access (20 points). Ambulatory Aid- None/Bed Rest/Nurse Assist (0 pts). Gait- Normal/Bed Rest/Wheelchair (0 pts) Mental Status- Oriented to own ability (0 pts). Total Bull Fall Scale indicates No Risk (0-24 pts). Assessment: 09:37 General: Appears in no apparent distress. comfortable, Behavior is calm, cooperative, jd3 appropriate for age. Pain: Complains of pain in mid-sternal area Quality of pain is described as aching, tender. Neuro: Chavarria Agitation-Sedation Scale (RASS): 0 - Alert and Calm Level of Consciousness is awake, alert, obeys commands, Oriented to person, place, time, situation. Cardiovascular: Reports chest pain, Capillary refill < 3 seconds Patient's skin is warm and dry. Rhythm is regular. Respiratory: Airway is patent Respiratory effort is even, unlabored, Respiratory pattern is regular, symmetrical, Denies cough, shortness of breath. GI: Abdomen is round non-distended, Abd is soft and non tender X 4 quads. Reports nausea, belching. : No signs and/or symptoms were reported regarding the genitourinary system. EENT: No signs and/or symptoms were reported regarding the EENT system. Derm: Skin is intact, Skin is dry, Skin is normal, Skin temperature is warm. Musculoskeletal: Circulation, motion, and sensation intact. Range of motion: intact in all extremities. 10:40 Reassessment: Patient appears in no apparent distress at this time. No changes from jd3 previously documented assessment. Patient and/or family updated on plan of care and expected duration. Pain level reassessed. Patient is alert, oriented x 3, equal unlabored respirations, skin warm/dry/pink. 11:45 Reassessment: Patient appears in no apparent distress at this time. No changes from jd3 previously documented assessment. Patient and/or family updated on plan of care and expected duration. Pain level reassessed. Patient is alert, oriented x 3, equal unlabored respirations, skin warm/dry/pink. 12:50 Reassessment: Patient appears in no apparent distress at this time. No changes from jd3 previously documented assessment. Patient and/or family updated on plan of care and expected duration. Pain level reassessed. Patient is alert, oriented x 3, equal unlabored respirations, skin warm/dry/pink. Vital Signs: 09:36 BP 143 / 93; Pulse 75; Resp 16 S; Temp 98.2(TE); Pulse Ox 99% on R/A; Weight 87.54 kg jd3 (R); Height 5 ft. 5 in. (165.10 cm) (R); Pain 8/10; 10:40 BP 112 / 72; Pulse 60; Resp 18 S; Pulse Ox 99% on R/A; jd3 11:44 BP 110 / 65; Pulse 63; Resp 18 S; Pulse Ox 100% on R/A; jd3 12:51 BP 94 / 59; Pulse 54; Resp 15 S; Pulse Ox 100% on R/A; jd3 13:25 BP 103 / 67; Pulse 53; Resp 18 S; Pulse Ox 100% on R/A; jd3 09:36 Body Mass Index 32.12 (87.54 kg, 165.10 cm) jd3 ED Course: 09:26 Patient arrived in ED. eb 09:30 Hayden Isabel, JAIR is Primary Nurse. jd3 09:32 Nish Ward MD is Attending Physician. kdr 09:34 Triage completed. jd3 09:37 Arm band placed on. EKG completed in triage. Results shown to MD. jd3 09:38 Patient has correct armband on for positive identification. Placed in gown. Bed in low jd3 position. Call light in reach. Side rails up X 1. Client placed on continuous cardiac and pulse oximetry monitoring. NIBP monitoring applied. cardiac monitor technician on. Pulse ox on. NIBP on. 09:38 Maintain EMS IV. Dressing intact. Good blood return noted. Site clean \\T\\ dry. Gauge \\T\\ khadijah 3 site: 20 G left AC. 11:10 XRAY Chest (1 view) In Process Unspecified. EDMS 13:19 No provider procedures requiring assistance completed. IV discontinued, intact, jl7 bleeding controlled, No redness/swelling at site. Pressure dressing applied. Administered Medications: 09:55 Drug: Zofran (Ondansetron) 4 mg Route: IVP; Site: left antecubital; jd3 10:55 Follow up: Response: No adverse reaction jd3 09:55 Drug: NS 0.9% 1000 ml Route: IV; Rate: 1 bolus; Site: left antecubital; jd3 10:55 Follow up: Response: No adverse reaction; IV Status: Completed infusion jd3 09:55 Drug: Pepcid (famotidine) 20 mg Route: IVP; Site: left antecubital; jd3 10:55 Follow up: Response: No adverse reaction jd3 10:39 Drug: Phenergan (promethazine) 25 mg Route: IVP; Site: left antecubital; jd3 11:30 Follow up: Response: No adverse reaction jd3 Medication: 09:38 VIS not applicable for this client. jd3 Outcome: 13:13 Discharge ordered by . kdr 13:19 Discharged to home ambulatory. jlTavo 13:19 Condition: stable 13:19 Discharge instructions given to patient, Instructed on discharge instructions, follow up and referral plans. medication usage, Demonstrated understanding of instructions, follow-up care, medications, Prescriptions given X 2. 13:20 Patient left the ED. jl7 Signatures: Dispatcher [employer] EDMS Nish Ward MD MD kdr Leal, Jahala RN RN jl7 Hayden Isabel RN RN jd3 Soraida Ambrose
--- NOTE | 2021-07-19 13:14 | EDPHYS ---
Physician Documentation [facility] Name: Evon Cain Age: 61 yrs Sex: Female : 1960 Arrival Date: 07/19/2021 Time: 09:26 Bed 2 Private MD: ED Physician Nish Ward HPI: 07/19 16:38 This 61 yrs old Female presents to ER via EMS with complaints of Chest Pain. kdr 16:38 Patient reports chest pain that started 6 AM this morning. Pain is in the middle of her kdr chest. She does have a history of GERD but states that this feels somewhat different. She does have a lot of belching at the time of initial exam. Patient had a recent admission at [facility] for chest pain and was ruled out and discharged. He was told to have cardiology follow-up. Today she has not followed up as recommended at the time of discharge from [facility]. Onset: The symptoms/episode began/occurred suddenly, at 06:00. Severity of symptoms: At their worst the symptoms were mild moderate just prior to arrival, in the emergency department the symptoms. The patient has not experienced similar symptoms in the past. The patient has been recently seen by a physician: As mentioned elsewhere, she had a recent (beginning of June) admission at [facility] for chest pain. Historical: - Allergies: 09:34 Latex, Natural Rubber; jd3 - Home Meds: 09:34 rosuvastatin 10 mg oral tab [Active]; methocarbamol 500 mg Oral tab [Active]; jd3 cetirizine 10 mg oral tab [Active]; gabapentin 100 mg oral cap [Active]; pantoprazole 40 mg oral TbEC [Active]; meclizine 25 mg Oral tab [Active]; citalopram 20 mg tab [Active]; lisdexamfetamine 30 mg oral cap [Active]; - PMHx: 09:34 Anxiety; Hyperlipidemia; kidney infection; trigeminal neuralgia; trigiminal neuralgia; jd3 - Immunization history:: Adult Immunizations up to date, Client reports receiving the 2nd dose of the Covid vaccine. - Social history:: Smoking status: Patient/guardian denies using tobacco, but has a distant history of tobacco abuse. ROS: 16:38 Constitutional: Negative for fever, chills, and weight loss, Eyes: Negative for injury, kdr pain, redness, and discharge, ENT: Negative for injury, pain, and discharge, Neck: Negative for injury, pain, and swelling, Respiratory: Negative for shortness of breath, cough, wheezing, and pleuritic chest pain, Back: Negative for injury and pain, : Negative for injury, bleeding, discharge, and swelling, MS/Extremity: Negative for injury and deformity, Skin: Negative for injury, rash, and discoloration, Neuro: Negative for headache, weakness, numbness, tingling, and seizure activity. Psych: Negative for depression, anxiety, suicide ideation, homicidal ideation, and hallucinations, Allergy/Immunology: Negative for hives, rash, and allergies, Endocrine: Negative for neck swelling, polydipsia, polyuria, polyphagia, and marked weight changes, Hematologic/Lymphatic: Negative for swollen nodes, abnormal bleeding, and unusual bruising. 16:38 Cardiovascular: Positive for chest pain, Negative for edema, orthopnea, palpitations, paroxysmal nocturnal dyspnea. 16:38 Abdomen/GI: Positive for abdominal pain, nausea, Belching rapidfire. Exam: 11:15 ECG was reviewed by the Attending Physician. kdr 16:38 Constitutional: This is a well developed, well nourished patient who is awake, alert, kdr and in no acute distress. Head/Face: Normocephalic, atraumatic. Eyes: Pupils equal round and reactive to light, extra-ocular motions intact. Lids and lashes normal. Conjunctiva and sclera are non-icteric and not injected. Cornea within normal limits. Periorbital areas with no swelling, redness, or edema. Neck: Trachea midline, no thyromegaly or masses palpated, and no cervical lymphadenopathy. Supple, full range of motion without nuchal rigidity, or vertebral point tenderness. No Meningismus. Chest/axilla: Normal chest wall appearance and motion. Nontender with no deformity. No lesions are appreciated. Cardiovascular: Regular rate and rhythm with a normal S1 and S2. No gallops, murmurs, or rubs. Normal PMI, no JVD. No pulse deficits. Abdomen/GI: Soft, non-tender, with normal bowel sounds. No distension or tympany. No guarding or rebound. No evidence of tenderness throughout. Back: No spinal tenderness. No costovertebral tenderness. Full range of motion. Vital Signs: 09:36 BP 143 / 93; Pulse 75; Resp 16 S; Temp 98.2(TE); Pulse Ox 99% on R/A; Weight 87.54 kg jd3 (R); Height 5 ft. 5 in. (165.10 cm) (R); Pain 8/10; 10:40 BP 112 / 72; Pulse 60; Resp 18 S; Pulse Ox 99% on R/A; jd3 11:44 BP 110 / 65; Pulse 63; Resp 18 S; Pulse Ox 100% on R/A; jd3 12:51 BP 94 / 59; Pulse 54; Resp 15 S; Pulse Ox 100% on R/A; jd3 13:25 BP 103 / 67; Pulse 53; Resp 18 S; Pulse Ox 100% on R/A; jd3 09:36 Body Mass Index 32.12 (87.54 kg, 165.10 cm) jd3 MDM: 13:13 Patient medically screened. kdr 16:38 Data reviewed: vital signs, nurses notes, lab test result(s), radiologic studies. kdr Counseling: I had a detailed discussion with the patient and/or guardian regarding: the historical points, exam findings, and any diagnostic results supporting the discharge/admit diagnosis, lab results, radiology results, the need for outpatient follow up. 07/19 09:33 Order name: CBC with Diff; Complete Time: 12:39 [facility] 07/19 09:33 Order name: CMP; Complete Time: 12:39 [facility] 07/19 09:33 Order name: Lipase; Complete Time: 12:39 [facility] 07/19 09:40 Order name: Troponin HS; Complete Time: 12:39 [facility] 07/19 09:40 Order name: XRAY Chest (1 view); Complete Time: 12:39 [facility] 07/19 11:11 Order name: Troponin High Sensitivity: Repeat 2 hours after initial draw; Complete kdr Time: 12:39 07/19 09:33 Order name: IV Saline Lock; Complete Time: 09:42 [facility] 07/19 09:33 Order name: Labs collected and sent; Complete Time: 09:55 [facility] 07/19 09:40 Order name: EKG; Complete Time: 09:41 [facility] 07/19 09:40 Order name: Cardiac monitoring; Complete Time: 09:42 [facility] 07/19 09:40 Order name: EKG - Nurse/Tech; Complete Time: :42 jd3 07/19 09:40 Order name: O2 Per Protocol; Complete Time: jd3 07/19 09:40 Order name: O2 Sat Monitoring; Complete Time: j EC:15 Rate is 64 beats/min. Rhythm is regular, Sinus arrythmia with No ectopy. QRS [place] is kdr Normal. MO interval is normal. QRS interval is normal. QT interval is normal. Clinical impression: Sinus arrythmia. Administered Medications: :55 Drug: Zofran (Ondansetron) 4 mg Route: IVP; Site: left antecubital; jd3 10:55 Follow up: Response: No adverse reaction jd3 09:55 Drug: NS 0.9% 1000 ml Route: IV; Rate: 1 bolus; Site: left antecubital; jd3 10:55 Follow up: Response: No adverse reaction; IV Status: Completed infusion jd3 09:55 Drug: Pepcid (famotidine) 20 mg Route: IVP; Site: left antecubital; jd3 10:55 Follow up: Response: No adverse reaction jd3 10:39 Drug: Phenergan (promethazine) 25 mg Route: IVP; Site: left antecubital; jd3 11:30 Follow up: Response: No adverse reaction jd3 Disposition Summary: 07/19/21 13:13 Discharge Ordered Location: Home kdr Problem: new kdr Symptoms: have improved kdr Condition: Stable kdr Diagnosis - Chest pain, unspecified kdr Followup: kdr - With: Private Physician - When: 2 - 3 days - Reason: If symptoms return, Further diagnostic work-up, Recheck today's complaints, Continuance of care, Re-evaluation by your physician Discharge Instructions: - Discharge Summary Sheet kdr - Nonspecific Chest Pain, Adult, [id number] kdr Forms: - Medication Reconciliation Form kdr - Thank You Letter kdr Prescriptions: - Pepcid 20 mg Oral Tablet - take 1 tablet by ORAL route every 12 hours for 10 days; 20 tablet; Refills: 0, kdr Product Selection Permitted - promethazine 25 mg Oral Tablet - take 1 tablet by ORAL route every 6 hours As needed; 20 tablet; Refills: 0, kdr Product Selection Permitted Signatures: Dispatcher [employer] EDMS Rittger, Nish, MD MD kdr Isabel, Hayden, RN RN jd3
[2021-07-19 13:26] VITALS: TEMP 98.2
[2021-07-19 13:29] VITALS: O2SAT 100
[2021-07-19 13:31] VITALS: BP 94/59
--- NOTE | 2021-07-21 12:22 | EKG ---
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
== END 2021-07-19 13:20 | disposition home or self-care (01) ==
LOC: ER 09:23
DX: R07.9 Chest pain, unspecified (principal); F41.9 Anxiety disorder, unspecified; E78.5 Hyperlipidemia, unspecified; G50.0 Trigeminal neuralgia
CPT/HCPCS: 96361; 93005; 85025; 36415; 84484 ×2; 83690; 80053; 71045; 96375; 96374; 99284; J2550; J7030; J2405; J3490